=== PATIENT | male | born 1945 | race Caucasian/White ===

== ENCOUNTER 2017-09-21 00:02 | Inpatient (IN) | payer OTHER ==
[2017-09-21] MEDS ORDERED: Fentanyl 20 MCG/ML 250 ML ONE (00:27)
[2017-09-21 00:59] LABS: Oxyhemoglobin 95.5 % (94.0-97.0); Sodium 142 mmol/L (135-148)
[2017-09-21 01:01] LABS: Mechanical Tidal Volume 500 ml; Modified Allen's Test POSITIVE; Vent YES
[2017-09-21 01:02] LABS: Mode SIMV
[2017-09-21 01:16] LABS: Bilirubin Negative (Negative); Blood, Urine Small (Negative); Glucose, Urine (Dipstick) >=1000 mg/dL (Negative); Ketone, Urine Trace mg/dL (Negative); Nitrite Negative (Negative); Protein, Urine (Dipstick) 30 mg/dL (Neg-Trace); Urobilinogen 0.2 mg/dL (0.2-1.0)
[2017-09-21 01:19] LABS: Bacteria/HPF None Seen HPF (None Seen); Hyaline Casts/LPF 0-3 HYALINE CAST LPF (0-3 Hyaline); RBC/HPF 0-3 HPF (0-3); Squamous Epithelial 0-3 HPF (0-3); WBC/HPF 0-3 HPF (0-3)
[2017-09-21 01:48] LABS: Anion Gap 14 mmol/L (-14-95); Critical Call POC Critical Value; Lactate 7.68 mmol/L (0.50-2.20); POC Est. GFR-MDRD-African-Amer 36; POC Estimated GFR-MDRD 30; T. Carbon Dioxide 20.7 mmol/L (1.0-85.0); pH (Venous) 7.048 (7.35-7.45); vO2 Saturation-calc 48.3 % (0.0-100.0)
[2017-09-21] MEDS ORDERED: Norepinephrine 8 MG/0.9% NS 250 ML ONE (02:15)
[2017-09-21 02:18] LABS: Lactic Acid - Sepsis 8.6 mmol/L (0.5-2.2)
--- NOTE | 2017-09-21 02:20 | PDOC.EVN ---
Event Note - Event Note Event Note: [id number] 1. ACute respiratory failure 2. Hypovolemic shock 3. Acute blood loss anemia 4. DKA 5.
[2017-09-21 02:22] LABS: ALT (SGPT) 130 U/L (8-55); AST (SGOT) 190 U/L (5-34); Alkaline Phosphatase 186 U/L (40-150); Anion Gap 18 mmol/L (10-20); BUN (Urea Nitrogen) 74 mg/dL (8.4-25.7); Bilirubin, Total 0.4 mg/dL (0.2-1.2); CK (CPK) 1046 U/L (30-200); Calc. Creatinine Clearance 0 mL/min (70-130); Calcium 7.7 mg/dL (7.8-10.44); Carbon Dioxide 17 mmol/L (23-31); Chloride 112 mmol/L (98-107); Estimated GFR-MDRD 32; Globulin 2.3 g/dL (2.4-3.5); Magnesium 2.5 mg/dL (1.6-2.6); Protein, Total 4.8 g/dL (5.8-8.1)
[2017-09-21 02:27] LABS: Troponin I 5.873 ng/mL (< 0.028)
[2017-09-21 02:30] LABS: PTT 57.3 SEC (22.9-36.1); Prothrombin Time 30.6 SEC (12.0-14.7)
[2017-09-21 02:36] LABS: Hematocrit 21.6 % (42.0-52.0); Mean Platelet Volume 8.6 fL (7.4-10.4); Red Blood Cell (RBC) Count 2.39 mill/uL (4.70-6.10)
[2017-09-21] MEDS ORDERED: Ondansetron HCl/PF 4 MG/2 ML Vial IVP PRN (02:48)
[2017-09-21] MEDS ORDERED: D5 1/2 NS w/20 mEq KCL 1,000 ML IV PRN (02:51)
[2017-09-21] MEDS ORDERED: CCU Electrolyte Replacement 1 EACH IVPB SCH (02:51)
[2017-09-21] MEDS ORDERED: NS 0.9% w/ 20 MEQ KCL 1,000 ML IV PRN ×2 (02:51)
[2017-09-21] MEDS ORDERED: Dextrose 5 %-0.45 % NaCl 1,000 ML IV PRN (02:51)
[2017-09-21] MEDS ORDERED: Sodium Chloride 0.9% 1,000 ML IV PRN ×4 (02:51)
[2017-09-21] MEDS ORDERED: TAZOBACTAM IVPB SCH (03:00)
[2017-09-21] MEDS ORDERED: PIPERACILLIN IVPB SCH (03:00)
[2017-09-21] MEDS ORDERED: SODIUM CHLORIDE 0.9% IVPB SCH (03:00)
[2017-09-21] MEDS ORDERED: Fentanyl 20 MCG/ML 250 ML IVPB SCH ×2 (03:16→04:27)
[2017-09-21 03:20] LABS: Band 18 % (5-11); Myelocyte 6 % (0-0); Neutrophil 47 % (42-75); Nucleated RBC 40 % (0)
[2017-09-21] MEDS ORDERED: Potassium Chloride 40 MEQ in Premix Bag 1 BAG IVPB PRN (03:22)
[2017-09-21] MEDS ORDERED: Potassium Phosphate 12 MMOL in Sodium Chloride 0.9% 250 ML 250 ML IV PRN (03:22)
[2017-09-21] MEDS ORDERED: Magnesium Oxide 400 MG TAB PO PRN ×2 (03:22)
[2017-09-21] MEDS ORDERED: CCU ELECTROLYTE REPLACEMENT PROTOCOL FS PRN (03:22)
[2017-09-21] MEDS ORDERED: Potassium Chloride 40 MEQ in Sodium Chloride 0.9% 250 ML 250 ML IVPB PRN (03:22)
[2017-09-21] MEDS ORDERED: Potassium Phosphate 9 MMOL in Sodium Chloride 0.9% 100 ML IVPB PRN (03:22)
[2017-09-21] MEDS ORDERED: Potassium Phosphate 15 MMOL in Sodium Chloride 0.9% 250 ML 250 ML IV PRN (03:22)
[2017-09-21] MEDS ORDERED: Potassium Chloride 20 MEQ TAB PO PRN (03:22)
[2017-09-21] MEDS ORDERED: Magnesium 2 GM/NS 0.9% 100 ML 2 GM in Premix Bag 1 BAG IVPB PRN (03:22)
[2017-09-21] MEDS ORDERED: Vancomycin HCl 1 GM in Premix Bag 1 BAG IVPB SCH (03:30)
[2017-09-21] MEDS ORDERED: Piperacillin/Tazobactam 3.375 GM in Sodium Chloride 0.9% 100 ML IVPB SCH (03:30)
[2017-09-21 03:50] LABS: Magnesium 2.4 mg/dL (1.6-2.6); Phosphorus 6.8 mg/dL (2.3-4.7)
[2017-09-21] MEDS: Pantoprazole 80 MG, Admixture Fee 1 EACH in Sodium Chloride 0.9% 100 ML IVP SCH ×2 (03:51→15:22)
[2017-09-21] MEDS ORDERED: Vancomycin HCl 1.5 GM in Sodium Chloride 0.9% 250 ML 300 ML IVPB SCH (04:00)
[2017-09-21] MEDS: Sodium Chloride 0.9% 1,000 ML IV SCH ×3 (04:00→16:46)
[2017-09-21] MEDS ORDERED: ZOSYN IVPB PRN (04:11)
[2017-09-21] MEDS ORDERED: Propofol 1,000 MG/100 ML VIAL IV ONE (04:19)
[2017-09-21] MEDS ORDERED: DISCONTINUE PREVIOUS NARCOTIC PAIN MEDICATIONS AND BENZODIAZEPINES FS SCH (04:27)
[2017-09-21] MEDS ORDERED: Lorazepam 2 MG/ML VIAL SLOW IVP PRN (04:27)
[2017-09-21] MEDS ORDERED: Morphine 4 MG/ML VIAL SLOW IVP PRN (04:28)
[2017-09-21 06:24] LABS: Anion Gap 12 mmol/L (10-20); BUN (Urea Nitrogen) 76 mg/dL (8.4-25.7); Calc. Creatinine Clearance 33 mL/min (70-130); Calcium 7.2 mg/dL (7.8-10.44); Carbon Dioxide 17 mmol/L (23-31); Chloride 117 mmol/L (98-107); Estimated GFR-MDRD 34
--- NOTE | 2017-09-21 07:14 | HP ---
DATE OF ADMISSION: 09/21/2017 CHIEF COMPLAINT: Coughing up blood. HISTORY OF PRESENT ILLNESS: The patient is a 72-year-old male with past medical history of diabetes mellitus type 2, hypertension, hyperlipidemia, coronary artery disease, hypothyroidism, now came to the ER because of respiratory failure. Patient lives in the retirement and the patient was found to be having coughing up blood and vomiting coffee-ground emesis, so patient was taken to the outside ER. In the outside ER, the patient was found to be in respiratory distress, so the patient was intubated. After the intubation, the patient was found to have coffee-ground emesis and then following that patient was found to have pH of 6.77, pCO2 of 61, so patient was transferred here on the vent support. The patient also found to have severe metabolic acidosis and DKA and hyperkalemia also. The patient did receive 2 units of blood transfusion in the outside ER and is in an amp of bicarbonate push. The patient received total of 4 liters of fluid bolus also in the past. The patient is currently still hypotensive and on the vent support, so we are not able to get much history. PAST MEDICAL HISTORY: As per HPI. PAST SURGICAL HISTORY: Unavailable. SOCIAL HISTORY: Currently living in retirement. Other social history unavailable. FAMILY HISTORY: Unavailable as the patient is currently on the vent support. REVIEW OF SYSTEMS: Unavailable from the patient as the patient is currently on the vent support. PHYSICAL EXAMINATION: CONSTITUTIONAL/VITAL SIGNS: At the time of H&P performed, blood pressure is 80/ 43, afebrile, respiration rate 18. GENERAL: The patient appears tired. HEENT: Anterior nares patent. Oral cavity positive for ET tube. Tongue appears dry. NECK: Supple, no JVD. CARDIOVASCULAR: S1, S2 present. Regular rate and rhythm, no murmurs, no rubs, no gallops. RESPIRATORY SYSTEM: Diminished breath sounds present. Positive for rhonchi, no wheezing, no accessory muscles seen. Positive for vent support. GASTROINTESTINAL: Abdomen is soft, distended, no guarding, no organomegaly, no masses felt. MUSCULOSKELETAL: No edema. CRANIAL NERVE SYSTEM: Intubated on vent support, not following commands. PSYCHIATRIC: Mood calm. LABORATORY DATA: At the time of H&P performed showed CBC is pending. Blood gas showed pH 7.13, pCO2 of 48, pO2 97. BMP showed sodium 147, potassium 4.6, chloride 114, creatinine 2.17. Lactate 7.68. ASSESSMENT AND PLAN: The patient is a 72-year-old male. 1. Acute respiratory failure, possible aspiration and respiratory acidosis. Plan to consult Pulmonary to evaluate the patient. Plan to continue on vent support. Plan to monitor the patient closely. 2. Diabetic ketoacidosis. Continue insulin drip per protocol. Plan to check BMP now. 3. Acute blood loss anemia. Patient did receive 2 units of packed RBCs. We will go ahead and order the 2 units of RBCs. Patient does have some blast cells and has elevated white count. ED physician did notify the oncologist who recommended to admit the patient here, so we will go ahead and admit the patient and we will monitor white count closely and hemoglobin. 4. Hyperkalemia, diabetic ketoacidosis and acute kidney injury. Consult livestock buyer to the patient. Continue IV fluids and monitor potassium level closely, improving. 5. Hypotension, sepsis. Plan to start the patient on broad spectrum antibiotics and also on vasopressors. We will monitor blood pressure closely. The case was discussed in detail with the patient. RAMIRO
[2017-09-21] MEDS ORDERED: Albumin 25% 25 GM/100 ML BOT IVPB SCH (07:44)
[2017-09-21] MEDS ORDERED: FLU VACC TS2017-18 (>65YR) 0.5 ML SYRINGE IM ONE (07:45)
[2017-09-21 07:51] LABS: Anion Gap 15 mmol/L (10-20); BUN (Urea Nitrogen) 78 mg/dL (8.4-25.7); Calc. Creatinine Clearance 32 mL/min (70-130); Calcium 7.3 mg/dL (7.8-10.44); Carbon Dioxide 13 mmol/L (23-31); Chloride 118 mmol/L (98-107); Estimated GFR-MDRD 32
--- NOTE | 2017-09-21 08:05 | RAD ---
PORTABLE CHEST: HISTORY: Shortness of breath. COMPARISON: No comparison. FINDINGS: There is abnormal opacification in the left lung base obscuring the left hemidiaphragm consistent wit h dense left lower lobe consolidation and/or atelectasis. Probable associated left effusion. Mild vascular congestion. Heart size within normal range. Mild aortic calcification. Bilateral api britt pleural thickening. IMPRESSION: Abnormal opacification of the left lung base. Mild vascular congestion. POS: [facility]
--- NOTE | 2017-09-21 08:12 | RAD ---
PORTABLE CHEST: HISTORY: Shortness of breath. COMPARISON: Comparison is made to exam earlier at 12:45 a.m. FINDINGS: The ET tube is in place with tip at vinita. NG tube is in place. Central line is in place via the r ight jugular and the tip overlies the SVC. There continues to be opacification of the left lung base obscuring the left hemidiaphragm consistent with left basilar atelectasis and/or consolidation. There may be associated left effusion. IMPRESSION: No significant interval change in the lung holland. POS: EDWARDO
[2017-09-21 08:32] LABS: Troponin I 10.628 ng/mL (< 0.028)
[2017-09-21] MEDS: Piperacillin/Tazobactam 2.25 GM in Sodium Chloride 0.9% 100 ML IVPB SCH ×3 (09:14→23:20)
[2017-09-21] MEDS ORDERED: Phytonadione 10 MG in Sodium Chloride 0.9% 50 ML IVPB SCH (09:30)
[2017-09-21] MEDS: Vasopressin 40 UNIT, Admixture Fee 1 EACH in Sodium Chloride 0.9% 100 ML IV SCH (10:02)
[2017-09-21 10:17] LABS: Sodium 142 mmol/L (135-148)
[2017-09-21 10:18] LABS: Mechanical Tidal Volume 500 ml; Mode SIMV; Modified Allen's Test POSITIVE; Pressure Support 10 cmH2O; Vent YES
[2017-09-21] MEDS ORDERED: DC Electrolyte Protocol FS ONE (10:35)
--- NOTE | 2017-09-21 10:38 | CON ---
DATE OF CONSULTATION: 09/21/2017 The patient is a 72-year-old gentleman with a complicated medical history. He was transferred from [facility] with multiple medical problems. ER physician at 2 o'clock in the morning notified me about his admission. Admission diagnosis was severe anemia and diabetic ketoacidosis, respiratory failure, GI bleed and an abnormal CBC. Apparently he was transfused 2 units of blood, he started on Levophed. He was given bicarbonate, ins ulin, fentanyl, Protonix. Multiple doctors are being consulted. At this stage, there are 2 officers from [place], I told th em to notify the warden, that the patient was gravely ill, may need to contact family members. History from the [facility] system includes the patient apparently was unresponsive with GI bleeding and apparently proceeded to have a respiratory arrest. His CT of the head was negative. CT of the abdom en shows splenomegaly with no obvious ascites. This was all done at [place]. His chest x-ray shows bilateral pulmonary infiltrates, left greater than right. MEDICATIONS: His list of medicine from [place] includes insulin 30 units, aspirin, levothyroxine 0.1, loratadine, metformin 1000 twice a day, Nitrostat, Pravastatin 20, verapamil 240. His [place] diagnosis states that he has hypertension, hyperlipidemia, hypothyroidism, diabetes, a nemia, unknown mental status. As noted, he had received 2 units of blood in [place] before being transferred here. Upon arrival to the ER as per the ER note locally he was unresponsive. He was apparently shackled. He has a central line placed in. Unclear about any additional information at this stage. He is presently on Levophed at 20 mcg, insulin 6 units IV fluids 150. PHYSICAL EXAMINATION: VITAL SIGNS: Pulse 100, blood pressure 120/80, sats are 97%, respiration 20. His I's and O's the la st 24 hours are 1079 in, 40 out. CHEST: Chest revealed bilateral rhonchi and crackles. CARDIAC: Sinus tachycardia. ABDOMEN: Soft. LABORATORY: His creatinine is 1.94, BUN is 76. Electrolytes are normal. His blood sugar is 262, la ctate is 5.6. His white count is 14,000, H&H is 6 and 21, platelet count was 200, 18 bands, 47 segs, 14 nucleated cells, 6 myelocytes. INR 2.8, PO2 119, pCO2 40% on 1.3, 100% FiO2 and 5 of PEEP in the ER. Troponin was 5.8. BNP is 5.9. IMPRESSION: 1. Multiorgan failure. 2. Hypotension. 3. Shock. 4. Sepsis. 5. Pneumonia. 6. Gastrointestinal bleed. 7. Abnormal CBC suggestive of possibly leukemia. 8. Renal failure. 9. Diabetes. 10. Metabolic acidosis. 11. Possible anoxic injury. PLAN: At this stage, continue insulin and broad-spectrum antibiotics adjusted for renal failure. IV fluids. is being ordered. Continue pressors. I will follow. Forty-five minutes critical care time.
--- NOTE | 2017-09-21 11:03 | CON ---
DATE OF CONSULTATION: 09/21/2017 HISTORY OF PRESENT ILLNESS: Mr. Salas is a 72-year-old inmate who was admitted for acute respiratory failure. He initially was complaining of hemoptysis at the [facility]. He was brought to [facility] ER. He was found to be in acute respiratory failure and for that reason was transferred to [facility]. We are now being consulted for his acute kidney injury. Please note, during the i nitial evaluation in the [place] ER he was given about 2 liters of fluid due to his hypotension an d acute kidney injury. REVIEW OF SYSTEMS: Not obtainable since the patient is intubated. PAST MEDICAL HISTORY: Type 2 diabetes mellitus. Status post hypotension. PAST SURGICAL HISTORY: Unavailable - recently status post intubation. SOCIAL HISTORY: The patient is currently an inmate at the [facility]. Currently no hi story of smoking. No alcohol intake. FAMILY HISTORY: Unavailable. PHYSICAL EXAMINATION: VITAL SIGNS: Blood pressure is currently at 120/70 on pressor support. Heart rate is 96, O2 sat 93% . GENERAL: Sedated and intubated on ventilator support. SKIN: Adequate turgor. HEENT: Pale conjunctivae, anicteric sclerae. NECK: No neck mass, no JVD. CHEST: No deformities. LUNGS: Decreased breath sounds. HEART: Normal sinus rhythm. No murmur, no gallops or rubs. ABDOMEN: Globular, soft, nontender, no masses. EXTREMITIES: No edema, no deformities. NEUROLOGIC: Sedated and intubated. MEDICATIONS: The patient is on insulin drip, Levaquin 250 mg IV q.24h., Ativan p.r.n., fentanyl drip , DuoNeb q.4h., currently on Levophed, Zosyn 2.25 grams IV q.6h., normal saline 100 mL per hour, salt poor albumin 25 grams IV q.6h. LABORATORY: 09/21/2017. White count 40, hemoglobin 6.6, sodium 142, potassium 4.3, chloride 118, ca rbon dioxide 13, BUN 78, creatinine 2.04, glucose 229, calcium 7.3, troponin I is 10.6. Cortisol lev el 22.6. ASSESSMENT AND PLAN: 1. Elevated white count - as per history this patient has a recent diagnosis of leukemia ?. Support jean-claude care. 2. Acute kidney injury. I did review the urinalysis. There is no evidence of any pigmented granula r cast. He most likely has a hemodynamically mediated renal dysfunction as suggested by a very amna ntrated urine as well as suggested by the events of his clinical history. Continue to optimize hemod ynamics. I agree with pressor support to raise blood pressure systolic. At the present time, there is no acute indication for any dialytic intervention. 3. Anemia - p.r.n. blood transfusion. Question of gastrointestinal bleed remains with this patient. It is unclear if he was complaining of hemoptysis or hematemesis. 4. Septic syndrome ? - on empiric IV antibiotics. The patient was ruled out for adrenal insufficien cy based on normal cortisol level. Overall, prognosis remains guarded. Continue supportive care.
--- NOTE | 2017-09-21 13:53 | CON ---
DATE OF CONSULTATION: 09/21/2017 CRITICAL CARE NOTE TIME: 30 minutes. HISTORY OF PRESENT ILLNESS: Patient is a 72-year-old gentleman who suffered a respiratory arrest and was emergently intubated. The patient is unable to give a coherent history. From the records, he apparently has a history of coronary artery disease. Patient was brought from the [facility] in [place] when he apparently collapsed. The patient was transferred to [place] for further evaluation. The patient at this time is intubated on pressors and on pressor support. PAST MEDICAL HISTORY: Hypertension, CAD, diabetes mellitus, dyslipidemia and CML. PAST SURGICAL HISTORY: SOCIAL HISTORY: The patient is incarcerated. MEDICATIONS: Aspirin 81 daily, pravastatin 20 at bedtime, verapamil 240 daily, metformin 500 b.i.d.,and Synthroid 100 mcg daily. ALLERGIES: No known drug allergies. PHYSICAL EXAMINATION: GENERAL: Intubated gentleman who was sedated with a blood pressure of 137/52 on Levophed. NECK: Full. LUNGS: Coarse breath sounds bilateral. HEART: Regular rate and rhythm, normal S1, S2 with a 1/6 systolic murmur. ABDOMEN: Nondistended. EXTREMITIES: No edema. LABORATORY DATA: Sodium 142, potassium 4.3, chloride 118, bicarbonate 13, BUN 78, creatinine 2.0, glucose is 204, troponin was 10.6. His white blood cell count is 40, hemoglobin 6.6, hematocrit 21.6 and platelets were 200. INR is 2.8. His EKG revealed sinus tachycardia, otherwise unremarkable. IMPRESSION: 1. Respiratory arrest. 2. Gastrointestinal bleed. 3. Probable sepsis. 4. Chronic myelogenous leukemia. 5. Renal insufficiency. 6. Diabetes mellitus. This unfortunate gentleman with CML who developed respiratory failure secondary to gastrointestinal bleed and sepsis. Patient has suffered a non-Q-wave myocardial infarction. His EKG is unremarkable. We will check the patient's echocardiogram. The patient cannot be anticoagulated as he is at this time on pressure support. His prognosis is poor. We will check the patient's echocardiogram and will follow this patient with you through his hospitalization. RAMIRO
--- NOTE | 2017-09-21 14:38 | ULT ---
RENAL ULTRASOUND: INDICATION: Acute renal failure. FINDINGS: The right kidney measures 11.4 x 5.2 x 5.4 cm. The left kidney measures 10.5 x 5.3 x 6.2 cm. No hyd ronephrosis is grossly evident. There is a small nonshadowing echogenic focus seen within the right renal pelvis which may reflect a prominent column of Godfrey. This measures up to 1.9 cm in size. A solid renal lesion within this lo cation cannot be entirely excluded. A noncontrast MRI of the abdomen may be helpful to evaluate for possible peripelvic soft tissue mass. IMPRESSION: Peripelvic soft tissue density seen within the mid to superior pole of the right kidney measuring up to 1.9 cm may reflect a column of Godfrey. Further evaluation with MRI of the abdomen without contras t may be helpful for improved characterization. POS: EDWARDO
[2017-09-21 14:52] LABS: Troponin I 24.738 ng/mL (< 0.028)
[2017-09-21] MEDS: Norepinephrine 8 MG/0.9% NS 250 ML IVPB SCH (15:22)
--- NOTE | 2017-09-21 16:03 | CON ---
DATE OF CONSULTATION: 09/21/2017 REASON FOR CONSULTATION: Leukocytosis. HISTORY OF PRESENT ILLNESS: Mr. Salas is a 72-year-old gentleman who is incarcerated at [facility]. He had an episode of hemoptysis at the [facility] and was transferred to [facility] in [place]. Apparently, he had respiratory arrest and underwent CPR and intubation. He de souza rvived and was eventually transferred to this facility with a diagnosis of severe anemia, diabetic ke toacidosis, respiratory failure, GI bleed, and abnormal CBC. Critical Care Medicine has seen the patient as has Nephrology. The patient is intubated and remains unresponsive. History was obtained from review of medical record. The patient's medical history inc ludes hypertension, diabetes, hypothyroidism, hypertension, and anemia. There is no lab provided fro the penitentiary system. No history of myeloproliferative or leukemia. In the [place] [facility] , CBC showed a WBC count of 134.7, hemoglobin of 4.6, platelet count of 523,000. He had 46% neutroph ils, 3% bands, 22% lymphs, 11% monocytes. He had 15 nucleated RBCs. He had a negative brain CT. He had an abdominal pelvis CT, which showed splenomegaly with the spleen measuring 15.9 cm. The patien t did receive 2 units of packed RBCs. He remains in the ICU on the ventilator on vasopressor support . CBC at our facility performed this morning at 0146 shows WBC count of 40, hemoglobin 6.6, hematocr it 21.6, platelet count of 200,000, 47% neutrophils, 18% bands, 4% lymphocytes, 6% myelocytes, 40% nu cleated RBCs. Peripheral smear shows a neutrophilic leukocytosis with a left shift, including 5% evin sts. PAST MEDICAL HISTORY: As noted in HPI. PAST SURGICAL HISTORY: Unknown. ALLERGIES: IGNACIO INHIBITORS and DEMEROL. HOME MEDICATIONS: 1. Aspirin 81 mg daily. 2. Insulin daily. 3. Levothyroxine 100 mcg daily. 4. Metformin 500 mg b.i.d. 5. Pravastatin 20 mg daily. 6. Verapamil 240 mg daily. FAMILY HISTORY: Unknown. SOCIAL HISTORY: He is incarcerated in [facility]. REVIEW OF SYSTEMS: Unable to obtain due to unresponsiveness. PHYSICAL EXAMINATION: VITAL SIGNS: Temperature is 99.2, pulse is 100, respiratory rate 27, blood pressure is 135/43. He i s 90% O2 sat on 100% O2. GENERAL: Unresponsive male, in no acute distress. HEENT: Normocephalic, atraumatic. He has an ET tube in place. CARDIOVASCULAR: Regular rate and rhythm. He is tachycardic. LUNGS: He has diminished with rhonchi throughout. ABDOMEN: Soft. Bowel sounds are positive. EXTREMITIES: No clubbing, cyanosis, or edema. SKIN: No rash. HEMATOLOGIC: There is an NG tube with coffee ground output. NEUROLOGIC: The patient is unresponsive, but does move all extremities spontaneously. PERTINENT LABORATORY AND X-RAYS: Current WBCs are 40,000, hemoglobin 6.6, hematocrit 21.6, platelet count is 200,000. Blood gas shows a pH of 7.2, pO2 of 59.1, hemoglobin is 9.3, PT is 30.6, INR is 2. 8, PTT is 57.3. Sodium is 142, potassium 4.3, chloride 118, CO2 is 23, BUN is 78, creatinine 2.04. Lactic acid is 5.2, calcium 5.3, troponin is 10.628. Urine is positive for ketones. Chest x-ray beto ws bilateral pulmonary infiltrates. IMPRESSION: 1. Multiorgan failure. 2. Hypertension. 3. Leukocytosis. 4. Respiratory failure. 5. Gastrointestinal bleed. 6. Pneumonia. 7. Questionable anoxic injury. DISCUSSION: The patient's respiratory status is managed by critical medicine. His hemoglobin has im proved with blood transfusion. His WBC combined with his splenomegaly points to myeloproliferative d isorder. We will run a flow cytometry on peripheral blood. The patient's status is quite guarded. We will be conservative in our approach at this time until he recovers from his current illness. Thank you for the consult. We will follow him remotely.
[2017-09-21 17:46] LABS: Oxyhemoglobin 85.5 % (94.0-97.0); Sodium 141 mmol/L (135-148)
[2017-09-21] MEDS ORDERED: Albumin 25% 25 GM/100 ML BOT IVPB ONE (17:50)
[2017-09-21 17:57] LABS: Modified Allen's Test POSITIVE; Vent YES
[2017-09-21 17:58] LABS: Mechanical Tidal Volume 500 ml
[2017-09-21 18:00] LABS: Mode SIMV.PSV; Pressure Support 10 cmH2O
[2017-09-21] MEDS ORDERED: Sodium Bicarb 50 MEQ/50 ML Abboject 8.4% SYRINGE IVP SCH (18:00)
[2017-09-21] MEDS ORDERED: Dextrose 5% in Water 1,000 ML IV SCH (18:00)
[2017-09-21] MEDS: Albumin 25% 25 GM/100 ML BOT IVPB SCH ×2 (18:09→23:22)
[2017-09-22] MEDS: Acetaminophen 650 MG Suppository PR PRN (00:07)
[2017-09-22] MEDS: Vasopressin 40 UNIT, Admixture Fee 1 EACH in Sodium Chloride 0.9% 100 ML IV SCH ×2 (00:30→14:32)
[2017-09-22] MEDS: Pantoprazole 80 MG, Admixture Fee 1 EACH in Sodium Chloride 0.9% 100 ML IVP SCH ×3 (00:30→21:09)
[2017-09-22] MEDS: Propofol 1,000 MG/100 ML VIAL IV PRN ×2 (00:33→21:47)
[2017-09-22] MEDS: Sodium Chloride 0.9% 1,000 ML IV SCH (01:18)
[2017-09-22] MEDS: Sodium Bicarbonate 75 MEQ in Dextrose 5% in Water 500 ML IV SCH ×8 (01:18→21:08)
[2017-09-22] MEDS: Piperacillin/Tazobactam 2.25 GM in Sodium Chloride 0.9% 100 ML IVPB SCH ×5 (04:17→21:09)
[2017-09-22 04:50] LABS: Anion Gap 15 mmol/L (10-20); BUN (Urea Nitrogen) 105 mg/dL (8.4-25.7); Calc. Creatinine Clearance 17 mL/min (70-130); Calcium 7.5 mg/dL (7.8-10.44); Carbon Dioxide 20 mmol/L (23-31); Chloride 114 mmol/L (98-107); Estimated GFR-MDRD 16
[2017-09-22] MEDS: Vancomycin HCl 500 MG in Sodium Chloride 0.9% 100 ML IVPB SCH (05:20)
[2017-09-22 05:35] LABS: Band 25 % (5-11); Hematocrit 28.1 % (42.0-52.0); Mean Platelet Volume 10.2 fL (7.4-10.4); Metamyelocyte 4 % (0-0); Myelocyte 1 % (0-0); Neutrophil 46 % (42-75); Nucleated RBC 3 % (0); Red Blood Cell (RBC) Count 3.13 mill/uL (4.70-6.10); Tear Drops SLIGHT = 2-5 cells (100X) (0-1/hpf); White Blood Cell (WBC) Count 12.2 thou/uL (4.8-10.8)
--- NOTE | 2017-09-22 05:41 | CON ---
DATE OF CONSULTATION: 09/21/2017 REASON FOR CONSULTATION: Hematemesis. CONSULTING PHYSICIAN: Jaun Pryor MD HISTORY OF PRESENT ILLNESS: The patient is a 72-year-old gentleman with past medical history of diabetes, hypertension, hyperlipidemia, coronary artery disease, CML(?), and hypothyroidism presenting with respiratory distress/ failure as well as coffee ground emesis. The patient is currently residing in [facility] where he began to have difficulty breathing and was taken to an outside ER. At that point, he was noted to be in respiratory distress in addition to having hematemesis characterized by coffee ground emesis and was subsequently intubated and sedated, OG tube aspirate after being placed on ventilatory support yielded coffee ground material at which point he was transferred to [facility] for further evaluation and treatment. On admission, he was found to have severe metabolic acidosis, diabetic ketoacidosis and hyperkalemia requiring placement in ICU care. Of note, while in the outside ER, he received approximately 2 units of blood, an amp of bicarbonate, and a total of approximately 4 liters of fluid. Currently, the patient is intubated and sedated with any additional past medical or surgical history unable to be obtained. PAST MEDICAL HISTORY: As per HPI. PAST SURGICAL HISTORY: Unavailable. SOCIAL HISTORY: Currently incarcerated in [place] half[place]way. No stated tobacco , alcohol, or drug use, although the patient is unable to contribute to current history. FAMILY HISTORY: Unavailable. REVIEW OF SYSTEMS: Patient is unable to contribute any review of systems due to being intubated and sedated. PHYSICAL EXAMINATION: VITAL SIGNS: Pulse 108, blood pressure 136/40, respiratory rate 26, satting 94 % on ventilatory support. GENERAL: Patient is intubated and sedated with no observed distress. CARDIOVASCULAR: Regular rate and rhythm with no discernible murmurs, gallops or rubs. RESPIRATORY: Coarse breath sounds were heard in all lung holland consistent with ventilatory support. ABDOMEN: Normoactive bowel sounds, soft. No grimacing or change in visage upon light and deep palpation of the abdomen. EXTREMITIES: No cyanosis, clubbing or edema. LABORATORY DATA: CBC with white blood cell count of 40, hemoglobin 6.6, hematocrit 21.6, platelet count 200. Chemistry: Sodium 142, potassium 4.3, chloride 118, carbon dioxide 13, anion gap 15, BUN 78, creatinine 2.04, glucose 229, calcium 7.3, troponin 24.7, INR 2.8. IMAGING: Chest x-ray obtained on 09/21/2017 showing endotracheal tube is in place with the tip of the vinita. NG tube is in place as well with proper positioning. Central line is in place via the right jugular and the tip overlies the SVC. There continues to be opacification of the left lung base obscuring the left hemidiaphragm concerning for atelectasis and/or consolidation. Renal ultrasound obtained on 09/21/2017 showing peripelvic soft tissue density seen within the mid to superior pole of the right kidney measuring up to 1.9 cm, which may reflect a column of Godfrey although a solid renal lesion cannot be entirely excluded. ASSESSMENT AND PLAN: The patient is a 72-year-old gentleman with past medical history of diabetes, hypertension, hyperlipidemia, coronary artery disease, hypothyroidism presenting with diabetic ketoacidosis, probable sepsis, hematemesis and renal insufficiency. Hematemesis Patient is presenting with a very complicated medical picture at this time as noted by probable sepsis, elevated troponins indicative of cardiac stress and/ or myocardial infarction, end-organ dysfunction, and diabetic ketoacidosis with severe acidosis noted on admission. He was also noted to have significant hematemesis, both before and after intubation, with coffee ground or dark colored emesis noted in the NG tube aspirate at bedside. Currently with decreased H&H concerning for active gastrointestinal bleeding, although with the coloration of the current NG tube aspirate, it is less likely at this time. He is currently facing bigger issues including hypotenison and possible myocardial infarction making endoscopic evaluation more complicated and with increased complications. There is also some question that he may have a diagnosis of chronic myelocytic leukemia as well which may be contributing to the current clinical picture. His clinical picture will need to be more stable prior to endoscopic intervention. PLAN: 1. Primary team in the CCU to stabilize the patient with goal of more normotensive pressures. Appreciate assistance. 2. Continue to trend H&H and transfuse if necessary to maintain an H&H greater than 7/21. 3. Continue proton-pump inhibitor drip for upper GI bleed. 4. We will hold on EGD for now until stabilization of the patient is achieved. If stabilization of the patient and decrease in his INR can be achieved, then we will proceed with endoscopic evaluation with EGD. [facility]
[2017-09-22] MEDS: Albumin 25% 25 GM/100 ML BOT IVPB SCH (06:17)
[2017-09-22] MEDS: Norepinephrine 8 MG/0.9% NS 250 ML IVPB SCH (06:50)
[2017-09-22 08:09] LABS: Oxyhemoglobin 95.6 % (94.0-97.0); Sodium 142 mmol/L (135-148)
[2017-09-22 08:11] LABS: Mode BILEVEL; Modified Allen's Test POSITIVE; PIP 24 cmH2O; Pressure Support 10 cmH2O; Vent YES
--- NOTE | 2017-09-22 08:11 | PDOC.PN ---
- Subjective Encounter Start Date: 09/22/17 Encounter Start Time: 08:10 -: non-verbal Subjective: INTUBATED - Objective MAR Reviewed: Yes Vital Signs & Weight: Vital Signs (12 hours) Temp Pulse Resp BP Pulse Ox 09/22/17 07:44 83 91/51 L 09/22/17 07:37 83 26 H 99 09/22/17 06:00 26 H 09/22/17 04:00 99.9 F H 26 H 09/22/17 02:00 99.9 F H 26 H 09/22/17 01:00 99.7 F H 09/22/17 00:19 102 H 26 H 09/22/17 00:00 101.6 F H 26 H 09/21/17 22:00 26 H Weight Admit Weight 154 lb Weight 154 lb 15.759 oz Most Recent Monitor Data Heart Rate from ECG 84 NIBP 98/52 NIBP BP-Mean 71 Respiration from ECG 26 SpO2 100 I&O: 09/21/17 09/22/17 09/23/17 06:59 06:59 06:59 Intake Total 1079.9 5538.7 Output Total 40 60 Balance 1039.9 5478.7 Result Diagrams: 09/22/17 03:45 09/22/17 03:45 Additional Labs: Accuchecks 09/22/17 09/22/17 09/22/17 07:31 06:20 05:16 POC Glucose 98 105 130 H 09/22/17 09/22/17 09/22/17 02:42 01:32 00:53 POC Glucose 129 H 115 H 108 09/21/17 09/21/17 09/21/17 23:28 22:39 21:47 POC Glucose 125 H 139 H 127 H 09/21/17 09/21/17 09/21/17 20:43 19:25 16:50 POC Glucose 138 H 150 H 136 H 09/21/17 09/21/17 09/21/17 12:44 11:36 10:45 POC Glucose 114 H 96 91 09/21/17 09:10 POC Glucose 133 H Radiology Reviewed by me: Yes Phys Exam - Physical Examination INTUBATED AND SEDATED ETT IN PLACE Respiratory: no wheezing, clear to auscultation bilateral Cardiovascular: RRR Gastrointestinal: positive bowel sounds Musculoskeletal: edema present SEDATED Deviation from normal: ECCHYMOSIS Dx/Plan (1) Acute blood loss anemia Code(s): D62 - ACUTE POSTHEMORRHAGIC ANEMIA Status: Acute (2) Hematemesis Code(s): K92.0 - HEMATEMESIS Status: Acute (3) DKA (diabetic ketoacidosis) Code(s): E13.10 - OTH DIABETES MELLITUS WITH KETOACIDOSIS WITHOUT COMA Status : Acute (4) Respiratory failure Code(s): J96.90 - RESPIRATORY FAILURE, UNSP, UNSP W HYPOXIA OR HYPERCAPNIA Status: Acute (5) Leukocytosis Code(s): D72.829 - ELEVATED WHITE BLOOD CELL COUNT, UNSPECIFIED Status: Acute (6) Sepsis associated hypotension Code(s): A41.9 - SEPSIS, UNSPECIFIED ORGANISM Status: Acute - Plan cont current plan of care, valdovinos catheter, continue antibiotics, respiratory therapy APPRECIATE INPUT FROM CCM, HEME,CONTINUE CURRENT REGIMEN. PATIENT IMPROVED -: BUT IN GUARDED CONDITION. * .
--- NOTE | 2017-09-22 08:32 | RAD ---
PORTABLE AP CHEST: Date: 09-22-17 History: Fever. Comparison: 09-21-17 History: On ventilator. Follow up evaluation. FINDINGS: Endotracheal tube, nasogastric tube, and right internal jugular vein central venous catheter remain i n place and unchanged in position. There is increased interstitial opacities throughout the lungs percy aterally which have increased when compared to the prior exam with greater patchy parenchymal opaciti es at each lung base. Findings may be related to either worsening asymmetric pulmonary edema or infec tious process. Cardiac silhouette is within normal limits. Vascular calcifications seen in the thorac ic aorta. No other interval change. IMPRESSION: Increase in bilateral interstitial opacities with increase in parenchymal opacities and opacity at th e right lung base. Findings may be related to either worsening asymmetric pulmonary edema or infectio us process. POS: EDWARDO
--- NOTE | 2017-09-22 08:39 | RAD ---
AP CHEST: Indication: Daily CCU examination on ventilation. Comparison: 09-22-17 FINDINGS: The patient remains intubated with an ET tube projecting just beyond the thoracic inlet. Gastric cath eter tip projects below the left hemidiaphragm and beyond the field of view. Right subclavian central venous catheter is stable. The patchy airspace disease involving both lungs is stable, suspicious fo r persistent pneumonia. No robyn pleural effusion or pneumothorax is evident. Osseous structures are unchanged. IMPRESSION: Stable pneumonia. POS: ZULEYKA
--- NOTE | 2017-09-22 08:58 | PRG ---
DATE OF SERVICE: 09/22/2017 SERVICE: Renal Medicine. SUBJECTIVE: Mr. Salas is a 72-year-old white male who was initially seen by the renal service for his acute kidney injury. At that time, he felt that he might have a hemodynamically mediated renal dysfunction. He came in hypotensive. Empiric volume repletion has been given with him prior to his transfer here at [facility]. He is also receiving salt poor albumin and currently being maintained on pressor support due to the low blood pressure. His renal function this morning has seems to have worsened. He continues to be on the anuric side. Although, his urine sediment is suggestive of prerenal picture, his clinical course is suggesting that he may have a superimposed acute tubular necrosis. Currently, the patient remains unchanged in the last 12 hours. PHYSICAL EXAMINATION: VITAL SIGNS: Blood pressure is 97/52, heart rate 86, respiratory rate 26, pulse ox 100%. GENERAL: Sedated and intubated on ventilator support. SKIN: Adequate turgor. HEENT: Slightly pale conjunctivae, anicteric sclerae. NECK: No neck mass. No carotid bruits, no JVD. CHEST: No deformities. LUNGS: Clear breath sounds. HEART: Normal sinus rhythm. No murmur, no gallops, no rubs. ABDOMEN: Globular, soft, nontender, no masses. EXTREMITIES: No edema, no deformities. NEUROLOGIC: The patient is sedated and intubated. MEDICATIONS: Of 09/22/2017 was reviewed. LABORATORY DATA AND IMAGING: Of 09/22/2017, white count 12.2, hemoglobin 9.1, sodium 144, potassium 5.1, chloride 114, carbon dioxide 20, BUN 105, creatinine 3.83, glucose 129, calcium 7.5. Repeat urinalysis pending. Renal ultrasound of 09/21/2017 shows a peripelvic soft tissue density? may reflect column of Godfrey, no hydronephrosis. ASSESSMENT AND PLAN: Acute kidney injury - consider the possibility of a superimposed acute tubular necrosis. Renal function is not improving in spite of aggressive volume repletion - please note that in the last 24-48 hours, this patient received several liters of fluid. Currently, on salt poor albumin. He was also given blood transfusion due to his severe anemia. He remains anuric. My concern is that he may have developed a superimposed acute tubular necrosis. We will continue to monitor. There is no indication for emergent hemodialysis this morning. However, we will closely monitor the renal function and if needed, we can initiate dialysis with this patient. However, this decision will depend on his overall status. Please note, this patient may have developed an CA suggested by elevated troponin. In addition, he was diagnosed with DKA. The possibility of sepsis also remains with this patient. Overall prognosis remains guarded with this patient. Agree with current management. RAMIRO
--- NOTE | 2017-09-22 11:41 | PRG ---
DATE OF SERVICE: 09/22/2017 This morning he is intubated on the vent on vasopressin and Levophed. Pupils are 2 mm. We are trying to control his sedation. PHYSICAL EXAMINATION: VITAL SIGNS: Blood pressure is 90/80, respirations 26. I's & O's have been 5538 in, 60 out. CHEST: Chest revealed extensive rhonchi and crackles. CARDIAC: Sinus tachycardia. ABDOMEN: Soft, no masses. LABORATORY: White count 12,000, H&H 9 and 28, platelet count 78, 25 segs, 14 lymphocytes, metamyeloc ytes, monocytes. Blood gas; pO2 was 97, pCO2 41, pH 7.28 2.8, rate 26, 90%, PEEP of 10. BUN and cre atinine are 105 and 2.8. X-ray shows diffuse infiltrates. IMPRESSION: 1. Multiorgan failure. 2. Sepsis syndrome. 3. Respiratory failure. 4. Acute respiratory distress syndrome. 5. Gastrointestinal bleed. 6. Hepatitis C. 7. Abnormal peripheral smear 8. Renal failure. PLAN: He is on Levaquin, vancomycin and Zosyn. Vasopressor and Levophed, supportive care. His prognosis is grave. Continue present supportive care. Echo shows severely depressed ejection fr action. We will discuss with Nephrology whether he is a candidate for dialysis. The patient apparently has no family members to give any additional information. Continue supportive care. One-half hour critical care time.
[2017-09-22 13:42] LABS: Bilirubin Small (Negative); Blood, Urine Large (Negative); Glucose, Urine (Dipstick) 250 mg/dL (Negative); Ketone, Urine Negative (Negative); Nitrite Negative (Negative); Protein, Urine (Dipstick) 300 mg/dL (Neg-Trace); Urobilinogen 0.2 mg/dL (0.2-1.0)
[2017-09-22 13:44] LABS: Bacteria/HPF None Seen HPF (None Seen); Hyaline Casts/LPF 0-3 HYALINE CAST LPF (0-3 Hyaline); Squamous Epithelial None Seen HPF (0-3); WBC/HPF 0-3 HPF (0-3)
[2017-09-22 14:20] LABS: Yeast-All Forms None Seen HPF (None Seen)
--- NOTE | 2017-09-22 17:50 | PRG ---
DATE OF SERVICE: 09/22/2017 REASON FOR CONSULTATION: Hematemesis. SUBJECTIVE: Overnight, the patient received 2 units of PRBCs and responded appropriately to the infusion with increase in H&H and stabilization. He continues to be intubated and sedated, although sedation has been minimized today with sedation breaks given as well and increased responses from the patient, but he is not following simple commands. He continues to have coffee ground emesis coming from the OG tube, but when compared to yesterday, it is minimal at best. INPATIENT MEDICATIONS: Reviewed. PHYSICAL EXAMINATION: VITAL SIGNS: Temperature 100, pulse 86, blood pressure 115/67, respiratory rate 26, satting 92% on ventilatory support. GENERAL: The patient is in no acute distress, although cannot follow meaningful commands due to intubation and sedation. NECK: Supple. No JVD noted. CARDIOVASCULAR: Regular rate and rhythm with tachycardic rate. No discernible murmurs, gallops or rubs. RESPIRATORY: Coarse breath sounds were heard in all lung hol[place] consistent with ventilatory support. ABDOMEN: Normoactive bowel sounds, soft, nondistended. Mild grimacing noted when palpating the midepigastric region. EXTREMITIES: No cyanosis or clubbing. Mild to moderate edema noted in the left upper extremity as well as ecchymoses noted on the bilateral upper extremities. LABORATORY DATA: CBC with white blood cell count of 12.2, hemoglobin 9.1, hematocrit 28.1, platelets 78. Sodium 144, potassium 5.1, chloride 114, carbon dioxide 20, BUN 105, creatinine 3.83, glucose 129. IMAGING: Chest x-ray obtained on 09/22/2017, shows that the ET tube projects just beyond the thoracic inlet with a gastric catheter tip below the left hemidiaphragm and beyond the field of view. Right subclavian central venous catheter stable and patchy airspace disease involving both lungs are stable. 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 Hematemesis The patient presenting with a very complicated medical picture complicated by sepsis, elevated troponins indicative of cardiac stress/IL, end-organ dysfunction with significantly elevated BUN and creatinine, and diabetic ketoacidosis with severe acidosis noted on admission that is being corrected per most recent blood gas. He was noted to have significant hematemesis, both before and after intubation, but since he has been in the ICU, he has had minimal output within the last 12-18 hours from his OG tube. Currently, his H& H is stable when compared to previous along with the administration of 2 units of PRBCs last night to which he responded appropriately. He continues to be on pressor support, but this has also been weaned as well as sedation breaks now being given in response to his improvement in his clinical status. However, at this time, he may still need more stabilization of his clinical status prior to endoscopic evaluation especially since stabilization of his H&H and decreased coffee-ground emesis from OG tube output. PLAN: 1. Primary team to continue resuscitative measures with goal of more normotensive pressures. I appreciate the assistance of the ICU team. 2. Continue to trend H&H and transfuse as necessary to maintain H&H greater than 7/21. 3. Continue PPI drip for upper gastrointestinal bleed. 4. We will discuss with GI on-call about obtaining consent for this patient and possible EGD today if not tomorrow for evaluation of possible upper GI bleed. [facility]
--- NOTE | 2017-09-22 21:34 | OP ---
PREOPERATIVE DIAGNOSIS: Hematemesis. PROCEDURE: After informed consent was obtained, the patient was placed in the supine position. Anes thesia was not given; however, the patient was on propofol drip during the procedure. A forward-view ing endoscope was inserted into the esophagus under direct visualization with ease and passed to the second portion of the duodenum with ease. Second portion of duodenum and duodenal bulb were normal. No blood was seen in the duodenum. The pylorus, antrum, body, fundus, and cardia were normal except for some retained gastric contents which consisted of some blood clot and old food. No active bleed ing was seen. There did appear to be some mild gastritis throughout the stomach. The GE junction wa s normal with a large erosion occurring in the distal third of the esophagus consistent with NG traum a. No active bleeding was noted from the esophagus. ASSESSMENT: 1. Stress gastritis. 2. Nasogastric tube trauma of the esophagus. RECOMMENDATIONS: 1. Continue Protonix drip. 2. Monitor H&H.
[2017-09-23] MEDS: Sodium Bicarbonate 75 MEQ in Dextrose 5% in Water 500 ML IV SCH ×4 (01:36→07:25)
[2017-09-23] MEDS: Piperacillin/Tazobactam 2.25 GM in Sodium Chloride 0.9% 100 ML IVPB SCH ×4 (03:00→21:12)
[2017-09-23] MEDS: Pantoprazole 80 MG, Admixture Fee 1 EACH in Sodium Chloride 0.9% 100 ML IVP SCH ×2 (04:24→15:25)
[2017-09-23 05:27] LABS: Vancomycin, Trough 14.6 ug/mL
[2017-09-23] MEDS: Vancomycin HCl 500 MG in Sodium Chloride 0.9% 100 ML IVPB SCH (05:37)
[2017-09-23 05:52] LABS: Anion Gap 16 mmol/L (10-20); BUN (Urea Nitrogen) 120 mg/dL (8.4-25.7); Calc. Creatinine Clearance 12 mL/min (70-130); Calcium 7.9 mg/dL (7.8-10.44); Carbon Dioxide 22 mmol/L (23-31); Chloride 109 mmol/L (98-107); Estimated GFR-MDRD 11
[2017-09-23 06:05] LABS: Band 20 % (5-11); Hematocrit 26.1 % (42.0-52.0); Metamyelocyte 3 % (0-0); Myelocyte 1 % (0-0); Neutrophil 49 % (42-75); Red Blood Cell (RBC) Count 2.97 mill/uL (4.70-6.10); White Blood Cell (WBC) Count 14.3 thou/uL (4.8-10.8)
[2017-09-23 07:21] LABS: Oxyhemoglobin 85.1 % (94.0-97.0); Sodium 142 mmol/L (135-148)
[2017-09-23 07:27] LABS: Mode BILEVEL; Modified Allen's Test POSITIVE; PIP 24 cmH2O; Pressure Support 10 cmH2O; Vent YES
--- NOTE | 2017-09-23 08:01 | RAD ---
PORTABLE CHEST: HISTORY: Dyspnea. CCU followup. COMPARISON: 09/22/17. ET tube and NG tube and central line unchanged. Interstitial and hazy alveolar infiltrates again see n bilaterally without significant interval change. POS: [facility]
[2017-09-23] MEDS ORDERED: Furosemide 40 MG/4 ML VIAL SLOW IVP SCH (08:15)
--- NOTE | 2017-09-23 08:45 | PRG ---
DATE OF SERVICE: 09/23/2017 Mr. Salas is intubated on the vent. He was sedated last night, but his medication had been discontin ued, fentanyl and Diprivan. X-ray shows diffuse interstitial alveolar infiltrates. His estimated EF was decreased yesterday. Hi s pressors are Levophed and vasopressin. PHYSICAL EXAMINATION: VITAL SIGNS: Blood pressure 160/80, pulse 102, O2 sat 90%, respirations 22. In the process of tryin g to taper his pressors. I's and O's 3620 in, 295 out. NEURO: Neurologically he is encephalopathic, unresponsive, though he is thrashing around. CHEST: Chest revealed extensive rhonchi and crackles. CARDIAC: Sinus tachycardia. ABDOMEN: Soft. LABORATORY: White count 14,000, H&H 8 and 26, platelet count is 43, 49 segs, 20 bands, 3 metamyelocy ahsan. PO2 was 50, pCO2 39%, pH 7.45, on a bilevel of 26, PEEP of 10, BUN 120 and creatinine 5.21. IMPRESSION: 1. Respiratory failure. 2. Congestive heart failure. 3. Aspiration pneumonitis. 4. Hypoxic injury. 5. Renal failure. 6. Gastrointestinal bleed. 7. Leukemia. PLAN: Antibiotics to be continued. So far, all cultures are negative. Consider discontinuing the v ancomycin. He may need dialysis to improve his pulmonary status. Trial of Lasix is being given. Discontinue bicarbonate. We will follow. One-half hour of critical care time.
[2017-09-23] MEDS: Sodium Chloride 0.45% 1,000 ML IV SCH ×2 (09:02→16:46)
--- NOTE | 2017-09-23 09:16 | PRG ---
DATE OF SERVICE: 09/23/2017 SUBJECTIVE: Mr. Salas is a 72-year-old white male who was admitted for an acute respiratory failure and being followed by the Renal Service for his acute kidney injury/chronic renal failure?. Renal fu nction continues to worsen. He was initially found to be severely hypotensive. Several liters of fl uid have been given and pressor support was reinstituted. He has also received blood transfusion. H is renal function essentially remains unimproved. He continues to be intubated on ventilator support . PHYSICAL EXAMINATION: VITAL SIGNS: Blood pressure 136/61, heart rate 106, respiratory rate 24, pulse ox 99%. GENERAL: Intubated and unresponsive on ventilator support. SKIN: Adequate turgor. HEENT: Slightly pale conjunctivae, anicteric sclerae. NECK: No neck mass, no carotid bruits, no JVD. CHEST: No deformities. LUNGS: Decreased breath sounds. HEART: Normal sinus rhythm. No murmur, no gallops, no rubs. ABDOMEN: Globular, soft, nontender, no masses. EXTREMITIES: No edema. MEDICATIONS: Medications of 09/23/2017 was reviewed. LABORATORY DATA: Laboratories of 09/23/2017; white count 14.3, hemoglobin 8.9, sodium 143, potassium 3.9, chloride 109, carbon dioxide 22, BUN 120, creatinine 5.29, GFR 11 mL per minute, calcium 7.9. White count is 14.2 and hemoglobin 8.9. Urinalysis on 09/22/2017 showed specific gravity 1.026, protein of 300, rbc of 11-20, wbc 0-3. ASSESSMENT AND PLAN: 1. Acute kidney injury - I still suspect the possibility that this overall be hemodynamically mediat ed renal dysfunction. However, he has not improved his renal function in the last 24 hours in spite of optimizing his hemodynamics. Blood pressure is now improved. It is possible that this patient ma y have an underlying acute tubular necrosis. In this a.m., there is no indication for any emergent h emodialysis. Should the renal function worsen, we may need to consider a dialytic intervention. How ever, due to the patient's severe comorbid problems, my bias is not to initiate dialysis with this pa tient. We are trying to get in touch with the patient's next relative that can make a decision for h im. Again, as previously mentioned, my bias is not to offer dialysis if possible with this patient. Overall continue supportive care. 2. Hypertension - much improved with pressors and volume repletion. 3. Acute respiratory failure, Pulmonary following. I did discuss the case at length with Dr. Abelino nunn.
[2017-09-23] MEDS ORDERED: Pancrelipase DR 12000 1 CAP FS PRN (09:30)
[2017-09-23] MEDS ORDERED: Sodium Bicarbonate Tab 325 MG TAB PER TUBE PRN (09:30)
--- NOTE | 2017-09-23 10:23 | PDOC.PN ---
- Subjective Encounter Start Date: 09/23/17 Encounter Start Time: 09:30 Subjective: intubated - Objective MAR Reviewed: Yes Vital Signs & Weight: Vital Signs (12 hours) Temp Pulse Resp BP Pulse Ox 09/23/17 06:59 89 142/68 H 09/23/17 06:57 89 26 H 99 09/23/17 06:00 26 H 09/23/17 04:00 26 H 09/23/17 03:00 99.4 F 09/23/17 02:27 83 114/49 L 09/23/17 02:00 26 H 09/23/17 00:11 81 120/61 09/23/17 00:00 26 H 09/22/17 23:00 99.1 F 09/22/17 22:24 83 113/56 L Weight Admit Weight 154 lb Weight 168 lb 6.931 oz Most Recent Monitor Data Heart Rate from ECG 78 NIBP 113/57 NIBP BP-Mean 82 Respiration from ECG 26 SpO2 98 I&O: 09/22/17 09/23/17 09/24/17 06:59 06:59 06:59 Intake Total 5538.7 3620.7 Output Total 60 295 Balance 5478.7 3325.7 Result Diagrams: 09/23/17 04:56 09/23/17 04:56 Additional Labs: Accuchecks 09/23/17 09/23/17 09/23/17 09:05 08:02 05:59 POC Glucose 114 H 123 H 145 H 09/23/17 09/23/17 09/23/17 05:02 04:00 03:05 POC Glucose 146 H 163 H 182 H 09/23/17 09/23/17 09/23/17 02:08 00:55 00:08 POC Glucose 177 H 165 H 136 H 09/22/17 09/22/17 09/22/17 23:16 22:12 21:12 POC Glucose 133 H 145 H 154 H 09/22/17 09/22/17 09/22/17 20:18 19:33 18:03 POC Glucose 167 H 145 H 152 H 09/22/17 09/22/17 09/22/17 17:20 16:17 15:35 POC Glucose 161 H 193 H 194 H 09/22/17 09/22/17 09/22/17 14:30 12:38 10:51 POC Glucose 216 H 166 H 155 H Phys Exam - Physical Examination intubated intubated Neck: supple Respiratory: no wheezing, no rhonchi, clear to auscultation bilateral Cardiovascular: RRR Gastrointestinal: positive bowel sounds Musculoskeletal: edema present intubated sedated Deviation from normal: mx ecchymoses Dx/Plan (1) Acute blood loss anemia Code(s): D62 - ACUTE POSTHEMORRHAGIC ANEMIA Status: Acute (2) Hematemesis Code(s): K92.0 - HEMATEMESIS Status: Acute (3) DKA (diabetic ketoacidosis) Code(s): E13.10 - OTH DIABETES MELLITUS WITH KETOACIDOSIS WITHOUT COMA Status : Acute (4) Respiratory failure Code(s): J96.90 - RESPIRATORY FAILURE, UNSP, UNSP W HYPOXIA OR HYPERCAPNIA Status: Acute (5) Leukocytosis Code(s): D72.829 - ELEVATED WHITE BLOOD CELL COUNT, UNSPECIFIED Status: Acute (6) Sepsis associated hypotension Code(s): A41.9 - SEPSIS, UNSPECIFIED ORGANISM Status: Acute - Plan cont current plan of care input from renal and pulmonary appreciated -: condition is guarded * . - Discharge Day Encounter end time: 10:23
--- NOTE | 2017-09-23 11:06 | PRG ---
DATE OF SERVICE: 09/23/2017 INITIAL REASON FOR CONSULTATION: Hematemesis. SUBJECTIVE: Overnight, the patient without any problems or complaints. No further destabilization of current clinical status. He underwent EGD yesterday with no discernible findings or evidence of active bleeding except for minimal NG tube trauma in the distal esophagus. INPATIENT MEDICATIONS: Reviewed. LABORATORY DATA: CBC with white blood cell count of 14.3, hemoglobin 8.9, hematocrit 26.1, platelets 43. Chemistry with sodium of 143, potassium 3.9, chloride 109, carbon dioxide 22, BUN 120, creatinine 5.21, glucose 140. IMAGING: EGD performed on 09/22/2017 showing normal proximal and mid esophagus with mild erosion of the distal esophagus felt to be due to NG tube trauma. Normal mucosa was seen in the pylorus, antrum, body, fundus and cardia except for some retained gastric content and which consisted of some blood clot and old food. Normal mucosa was seen in the duodenal bulb and second portion of the duodenum, no evidence of active bleeding seen during the exam. 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 Hematemesis. The patient presenting with a very complicated medical picture including sepsis , elevated troponins and organ dysfunction with significantly elevated BUN and creatinine and diabetic ketoacidosis with severe metabolic acidosis noted on admission, he was also noted to have significant hematemesis, both before and after intubation, currently hemoglobin and hematocrit was stable after infusion of 2 units of packed red blood cells. EGD performed on 09/22/2017 did not show any significant findings for continued active bleeding. At this point, the most likely reason for his hematemesis was either stress gastritis or NG tube trauma or even possibly a Deann-Gustafson tear that has healed at this point in time. Today, hemoglobin and hematocrit was is stable when compared to previous. Further indicative of no further gastrointestinal bleeding. PLAN: 1. Primary team to continue resuscitative efforts. I appreciate the system assistance of the ICU team. 2. Continue to trend H&H and transfuse as necessary to maintain H&H greater than 7/21. 3. Can transfer to PPI 40 mg b.i.d. today given lack of GI bleeding findings on EGD. 4. Further endoscopic intervention is not necessary given the lack of findings for upper GI bleeding. We will sign off at this time. Please call with any additional questions. [facility]
[2017-09-23] MEDS ORDERED: Dextrose 50% Abboject 50 ML SYRINGE IVP PRN (13:59)
[2017-09-23] MEDS ORDERED: Dextrose 5% in Water 1,000 ML IV PRN (13:59)
[2017-09-23] MEDS: Propofol 1,000 MG/100 ML VIAL IV PRN (15:13)
[2017-09-23] MEDS: Insulin Regular 300 UNITS/3 ML VIAL SC PRN ×3 (16:45→23:58)
[2017-09-23] MEDS: Acetaminophen 650 MG Suppository PR PRN (17:51)
[2017-09-23] MEDS: Atorvastatin Calcium 20 MG TAB PO SCH (20:35)
[2017-09-23] MEDS: NPH, Human Insulin Isophane 300 UNIT/3 ML VIAL SC SCH (23:58)
[2017-09-24] MEDS: Pantoprazole 80 MG, Admixture Fee 1 EACH in Sodium Chloride 0.9% 100 ML IVP SCH ×2 (00:53→08:39)
[2017-09-24] MEDS: Propofol 1,000 MG/100 ML VIAL IV PRN ×3 (02:23→19:58)
[2017-09-24] MEDS: Piperacillin/Tazobactam 2.25 GM in Sodium Chloride 0.9% 100 ML IVPB SCH ×3 (03:04→16:21)
[2017-09-24] MEDS: Insulin Regular 300 UNITS/3 ML VIAL SC PRN ×5 (03:06→20:46)
[2017-09-24 05:16] LABS: Anion Gap 19 mmol/L (10-20); Calc. Creatinine Clearance 10 mL/min (70-130); Calcium 8.1 mg/dL (7.8-10.44); Carbon Dioxide 21 mmol/L (23-31); Chloride 108 mmol/L (98-107); Estimated GFR-MDRD 8
[2017-09-24 05:28] LABS: BUN (Urea Nitrogen) 136 mg/dL (8.4-25.7)
[2017-09-24 05:45] LABS: Band 9 % (5-11); Hematocrit 32.4 % (42.0-52.0); Mean Platelet Volume 15.1 fL (7.4-10.4); Metamyelocyte 3 % (0-0); Myelocyte 1 % (0-0); Neutrophil 67 % (42-75); Nucleated RBC 1 % (0); Reactive Lymphocytes 1 % (0-10); Red Blood Cell (RBC) Count 3.63 mill/uL (4.70-6.10); Tear Drops MODERATE= 6-15 cells (100X) (0-1/hpf); White Blood Cell (WBC) Count 20.8 thou/uL (4.8-10.8)
[2017-09-24 07:03] LABS: Oxyhemoglobin 90.3 % (94.0-97.0); Sodium 141 mmol/L (135-148)
[2017-09-24 07:09] LABS: Modified Allen's Test NOT DONE; Pressure Support 10 cmH2O; Vent YES
[2017-09-24 07:10] LABS: Mode BILEVEL LOW 12
[2017-09-24] MEDS: NPH, Human Insulin Isophane 300 UNIT/3 ML VIAL SC SCH (08:33)
--- NOTE | 2017-09-24 08:37 | RAD ---
FRONTAL VIEW CHEST: Date: 09/24/17 COMPARISON: Previous day. INDICATION: ICU follow-up. FINDINGS: Supportive lines and tubes are grossly stable. Diffuse bilateral pulmonary parenchymal opacities trudy in, as well as pleural based density at each inferior hemithorax. IMPRESSION: Grossly stable chest. POS: [facility]
--- NOTE | 2017-09-24 08:44 | PRG ---
DATE OF SERVICE: 09/24/2017 This morning he is on the vent. Pretty much unresponsive. PHYSICAL EXAMINATION: VITAL SIGNS: His pulse is 100, blood pressure 160/83, sats 100%, respirations 27. His I's and O's o mayra the last 24 hours have been 276 in, 170 out. CHEST: Chest reveals extensive rhonchi and crackles. CARDIAC: Sinus tachycardia. ABDOMEN: Soft. NEURO: Neurologically, he is encephalopathic. LABORATORY: White count 20,000, H&H 9 and 32, platelet count is 26, 7 segs. His pO2 65, pCO2 36.36, rate 20, 50% bilevel, PEEP of 12. BUN and creatinine of 136 and 0.8. X-ray shows diffuse pulmonary infiltrates. He has Staphylococcus aureus apparently in his sputum. IMPRESSION: 1. Respiratory failure, aspiration. 2. Gastrointestinal bleed. 3. Probably anoxic injury. 4. Worsening renal failure. 5. Unknown hematological problem. PLAN: I discussed with Dr. Trevizo yesterday. He does not think the patient is a candidate for dialysis . Continue supportive care. Unfortunately he has no family members to make any decisions. Will start low dose feedings. We will discuss with the appropriate people today regarding ongoing ca re and prognosis. One-half hour critical care time.
[2017-09-24] MEDS ORDERED: NPH, Human Insulin Isophane 300 UNIT/3 ML VIAL SC SCH (09:00)
[2017-09-24] MEDS ORDERED: Propofol 1,000 MG/100 ML VIAL IV ONE (09:13)
[2017-09-24] MEDS: Sodium Chloride 0.45% 1,000 ML IV SCH (09:20)
[2017-09-24] MEDS: Insulin Detemir 100 UNITS/ML 15 UNITS in Pre-Filled Syringe 1 EACH SC SCH ×2 (09:22→20:01)
[2017-09-24] MEDS: Acetaminophen 650 MG Suppository PR PRN (11:14)
--- NOTE | 2017-09-24 13:18 | PDOC.PN ---
- Subjective Encounter Start Date: 09/24/17 Encounter Start Time: 12:00 -: non-verbal - Objective MAR Reviewed: Yes Vital Signs & Weight: Vital Signs (12 hours) Temp Pulse Resp BP Pulse Ox 09/24/17 12:09 96 132/66 09/24/17 12:00 98.9 F 09/24/17 11:00 101.0 F H 09/24/17 08:00 98.4 F 98 27 H 09/24/17 06:42 86 110/54 L 100 09/24/17 06:40 87 21 H 100 09/24/17 06:00 23 H 09/24/17 04:00 25 H 09/24/17 03:22 93 104/48 L 09/24/17 03:00 98.0 F 09/24/17 02:00 22 H Weight Admit Weight 154 lb Weight 168 lb 6.931 oz Most Recent Monitor Data Heart Rate from ECG 96 NIBP 140/70 NIBP BP-Mean 116 Respiration from ECG 21 SpO2 100 I&O: 09/23/17 09/24/17 09/25/17 06:59 06:59 06:59 Intake Total 3620.7 2760.8 60 Output Total 295 170 70 Balance 3325.7 2590.8 -10 Result Diagrams: 09/24/17 04:39 09/24/17 04:39 Additional Labs: Accuchecks 09/24/17 09/23/17 09/23/17 03:03 23:40 20:35 POC Glucose 305 H 321 H 237 H 09/23/17 16:42 POC Glucose 213 H Radiology Reviewed by me: Yes Phys Exam - Physical Examination sedated and intubated ett in place Neck: supple diminshed Cardiovascular: RRR enoch Gastrointestinal: soft Musculoskeletal: edema present sedated and intubated Deviation from normal: sedated and intubated Deviation from normal: ecchymoses Dx/Plan (1) Acute blood loss anemia Code(s): D62 - ACUTE POSTHEMORRHAGIC ANEMIA Status: Acute (2) Hematemesis Code(s): K92.0 - HEMATEMESIS Status: Acute (3) DKA (diabetic ketoacidosis) Code(s): E13.10 - OTH DIABETES MELLITUS WITH KETOACIDOSIS WITHOUT COMA Status : Acute (4) Respiratory failure Code(s): J96.90 - RESPIRATORY FAILURE, UNSP, UNSP W HYPOXIA OR HYPERCAPNIA Status: Acute (5) Leukocytosis Code(s): D72.829 - ELEVATED WHITE BLOOD CELL COUNT, UNSPECIFIED Status: Acute (6) Sepsis associated hypotension Code(s): A41.9 - SEPSIS, UNSPECIFIED ORGANISM Status: Acute - Plan cont current plan of care, continue antibiotics condition guarded * . - Discharge Day Encounter end time: 13:19
[2017-09-24] MEDS ORDERED: Furosemide 100 MG/10 ML VIAL SLOW IVP SCH (15:30)
--- NOTE | 2017-09-24 15:36 | PRG ---
DATE OF SERVICE: 09/24/2017 RENAL MEDICINE SUBJECTIVE: The patient relatively remains unchanged. No acute events noted. We are following him up for his acute kidney injury secondary to presumed acute tubular necrosis. He remains to have decr eased urine output. Renal function remains unimproved. His overall condition also remains unchanged . PHYSICAL EXAMINATION: GENERAL: Sedated and intubated on ventilator support. VITAL SIGNS: Blood pressure is noted at 134/60, heart rate 96, respiratory rate 36, pulse ox 100%. HEENT: He has pinkish conjunctivae, anicteric sclerae. NECK: No neck mass, no carotid bruits, no JVD. CHEST: No deformities. LUNGS: Clear breath sounds. No wheezing, no crackles. HEART: Normal sinus rhythm. No murmur, no gallops, no rubs. ABDOMEN: Globular, soft, nontender. No masses. EXTREMITIES: No edema. MEDICATIONS: Medications of 09/24/2017 was reviewed. LABORATORY DATA: Laboratories of 09/24/2017; white count 20.8, hemoglobin 9.9, and platelet count 26 ,000. Sodium 143, potassium 4.6, chloride 108, carbon dioxide 21, BUN 136, creatinine 6.81, glucose 329, and calcium 8.1. IMAGING DATA: Chest x-ray unchanged, diffuse infiltrates. ASSESSMENT AND PLAN: 1. Acute kidney injury secondary to presumed acute tubular necrosis. I am trying to hold off dialys is until I can see some improvement with patient's overall medical condition. Please note he has sev eral comorbid problems. My bias is not to introduce the dialysis unless we think the patient will be a viable long-term. Continue supportive care. No indication for an emergent hemodialysis today. 2. Sepsis - on empiric IV antibiotics. 3. Acute respiratory failure on ventilator support. Pulmonary is following. 4. Elevated white count/decreased platelet count - underlying leukemia? Hematology following conser vative management.
[2017-09-24] MEDS: Pantoprazole 40 MG VIAL IVP SCH (20:00)
[2017-09-24] MEDS: Atorvastatin Calcium 20 MG TAB PO SCH (20:00)
[2017-09-25] MEDS: Insulin Regular 300 UNITS/3 ML VIAL SC PRN ×6 (00:19→20:31)
[2017-09-25] MEDS: Piperacillin/Tazobactam 2.25 GM in Sodium Chloride 0.9% 100 ML IVPB SCH ×2 (01:50→08:01)
[2017-09-25 05:08] LABS: Hematocrit 29.4 % (42.0-52.0); Mean Platelet Volume 14.3 fL (7.4-10.4); White Blood Cell (WBC) Count 34.1 thou/uL (4.8-10.8)
[2017-09-25 05:10] LABS: Anion Gap 18 mmol/L (10-20); Calc. Creatinine Clearance 9 mL/min (70-130); Calcium 8.3 mg/dL (7.8-10.44); Carbon Dioxide 22 mmol/L (23-31); Chloride 107 mmol/L (98-107); Estimated GFR-MDRD 7
[2017-09-25 05:22] LABS: BUN (Urea Nitrogen) 152 mg/dL (8.4-25.7)
[2017-09-25 05:28] LABS: Band 13 % (5-11); Hypochromia SLIGHT = 6-15 cells (100X) (0-5/hpf); Metamyelocyte 5 % (0-0); Myelocyte 2 % (0-0); Neutrophil 61 % (42-75); Nucleated RBC 4 % (0)
[2017-09-25] MEDS: Propofol 1,000 MG/100 ML VIAL IV PRN ×2 (06:35→15:30)
[2017-09-25] MEDS: Insulin Detemir 100 UNITS/ML 15 UNITS in Pre-Filled Syringe 1 EACH SC SCH ×2 (08:00→20:50)
[2017-09-25] MEDS: Pantoprazole 40 MG VIAL IVP SCH ×2 (08:01→20:22)
[2017-09-25] MEDS ORDERED: Cefepime 0.5 GM in Admixture Fee 1 EACH IVPB SCH (09:00)
--- NOTE | 2017-09-25 09:36 | PRG ---
DATE OF SERVICE: 09/25/2017 SUBJECTIVE: Mr. Faraz Salas remains on the vent intubated, encephalopathic. OBJECTIVE: VITAL SIGNS: Blood pressure 140/70, he is off pressors. Sats are 100%, respirations 26. His I's an d O's have been with 1828 in, 305 out. CHEST: Reveals extensive rhonchi. CARDIAC: Sinus tachycardia. ABDOMEN: Soft. NEUROLOGIC: He is unresponsive. He is slightly sedated. LABORATORY DATA: White count 79167, H&H is 9 and 29, platelet count 23,000. Creatinine is 7.6, BUN 15. IMPRESSION: 1. Respiratory failure. 2. Worsening renal failure. 3. Staph methicillin-resistant Staphylococcus aureus, sputum, pneumonia. 4. Unknown hematological problem, leukemia versus myeloproliferative disorder. 5. Gastrointestinal bleed. PLAN: At this stage, I have added Zyvox to his present antibiotic regime. Vent being adjusted. It is unclear whether he is a candidate for any dialysis at this stage. His overall prognosis is grave. Unfortunately, there are no family members to contact at this stage. One-half hour critical care time.
[2017-09-25] MEDS: Linezolid 600 MG in Premix Bag 1 BAG IVPB SCH ×2 (09:45→20:23)
[2017-09-25] MEDS: Cefepime 0.5 GM, Admixture Fee 1 EACH in Sterile Water 10 ML SLOW IVP SCH ×2 (10:39→20:22)
--- NOTE | 2017-09-25 10:46 | PDOC.PN ---
- Subjective Encounter Start Date: 09/25/17 Encounter Start Time: 10:00 -: non-verbal - Objective MAR Reviewed: Yes Vital Signs & Weight: Vital Signs (12 hours) Temp Pulse Resp BP Pulse Ox 09/25/17 10:00 26 H 09/25/17 09:00 99.1 F 09/25/17 08:59 109 H 162/77 H 09/25/17 08:14 102 H 147/70 H 100 09/25/17 08:12 102 H 24 H 100 09/25/17 08:00 100.1 F H 102 H 24 H 09/25/17 07:00 100.1 F H 09/25/17 04:00 99 F 09/25/17 03:04 103 H 125/58 L 09/25/17 00:44 105 H 130/62 09/25/17 00:00 99.5 F Weight Admit Weight 154 lb Weight 172 lb 2.896 oz Most Recent Monitor Data Heart Rate from ECG 106 NIBP 127/55 NIBP BP-Mean 67 Respiration from ECG 26 SpO2 87 I&O: 09/24/17 09/25/17 09/26/17 06:59 06:59 06:59 Intake Total 2760.8 1828 60 Output Total 170 305 115 Balance 2590.8 1523 -55 Result Diagrams: 09/25/17 04:16 09/25/17 04:16 Additional Labs: Accuchecks 09/25/17 09/25/17 09/24/17 07:41 04:23 20:44 POC Glucose 205 H 228 H 240 H 09/24/17 09/24/17 09/24/17 16:08 11:14 08:23 POC Glucose 273 H 299 H 319 H Phys Exam - Physical Examination SEDATED AND INTUBATED ETT IN PLACE COARSE Cardiovascular: irregular SINUS TACHY Gastrointestinal: soft Musculoskeletal: edema present SEDATED AND INTUBATED Dx/Plan (1) Acute blood loss anemia Code(s): D62 - ACUTE POSTHEMORRHAGIC ANEMIA Status: Acute (2) Hematemesis Code(s): K92.0 - HEMATEMESIS Status: Acute (3) DKA (diabetic ketoacidosis) Code(s): E13.10 - OTH DIABETES MELLITUS WITH KETOACIDOSIS WITHOUT COMA Status : Acute (4) Respiratory failure Code(s): J96.90 - RESPIRATORY FAILURE, UNSP, UNSP W HYPOXIA OR HYPERCAPNIA Status: Acute (5) Leukocytosis Code(s): D72.829 - ELEVATED WHITE BLOOD CELL COUNT, UNSPECIFIED Status: Acute (6) Sepsis associated hypotension Code(s): A41.9 - SEPSIS, UNSPECIFIED ORGANISM Status: Acute - Plan cont current plan of care, continue antibiotics CONDITION WORSENING -: AWAITING INFO FROM REFERENCE TO WITHDRAWAL * .
[2017-09-25] MEDS ORDERED: Digoxin 0.5 MG/2 ML AMP SLOW IVP SCH (11:30)
[2017-09-25] MEDS: Amiodarone HCl 450 MG in Dextrose 5% in Water 250 ML IVPB SCH ×6 (11:57→20:23)
[2017-09-25] MEDS ORDERED: Amiodarone HCl 150 MG, Admixture Fee 1 EACH in Dextrose 5% in Water 100 ML IVPB SCH ×3 (12:00)
--- NOTE | 2017-09-25 12:07 | PRG ---
DATE OF SERVICE: 09/25/2017 RENAL MEDICINE SUBJECTIVE: Mr. Salas is a 72-year-old white male who was seen for his acute kidney injury. Renal f unction has been worsening over time. He most likely has superimposed ischemic acute tubular necrosi s. He is not improving in spite of volume repletion. We are currently holding dialysis. Our feeling is that this patient may not be a dialysis candidate due to his very poor prognosis. No acute events last night. OBJECTIVE: VITAL SIGNS: Blood pressure 127/55, heart rate 106, respiratory rate 26, pulse ox 87%. GENERAL: Noted to be sedated, intubated and on ventilator support. SKIN: Adequate turgor. HEENT: Pinkish conjunctivae, anicteric sclerae. NECK: No neck mass, no carotid bruits, no JVD. CHEST: No deformities. LUNGS: Decreased breath sounds. HEART: Normal sinus rhythm. No murmur, no gallops, no rubs. ABDOMEN: Globular, soft. EXTREMITIES: Trace edema. MEDICATIONS: 09/25/2017 was reviewed. LABORATORY DATA: Laboratories of 09/25/2017, white count 34.1, hemoglobin 9.6. Sodium 143, potassiu m 4.4, chloride 107, carbon dioxide 22, BUN 152, creatinine 7.64, glucose 234, calcium 8.3. ASSESSMENT AND PLAN: Acute kidney injury, most likely secondary to acute tubular necrosis. No indic ation for any dialysis. I have sent to offer dialysis for this patient since he may have no meaningf ul recovery with these multiple comorbid problems. I feel that supportive care as indicated with thi s patient. For the moment, I agree with current management.
[2017-09-25] MEDS: Sodium Chloride 0.45% 1,000 ML IV SCH (15:23)
[2017-09-25] MEDS: Atorvastatin Calcium 20 MG TAB PO SCH (20:22)
[2017-09-25] MEDS: Acetaminophen 650 MG Suppository PR PRN (21:38)
[2017-09-26] MEDS: Propofol 1,000 MG/100 ML VIAL IV PRN (00:10)
[2017-09-26] MEDS: Insulin Regular 300 UNITS/3 ML VIAL SC PRN ×5 (00:21→22:08)
[2017-09-26 05:36] LABS: Anion Gap 21 mmol/L (10-20); Calc. Creatinine Clearance 8 mL/min (70-130); Calcium 8.7 mg/dL (7.8-10.44); Carbon Dioxide 19 mmol/L (23-31); Chloride 105 mmol/L (98-107); Estimated GFR-MDRD 6
[2017-09-26 05:47] LABS: BUN (Urea Nitrogen) 166 mg/dL (8.4-25.7)
[2017-09-26 06:34] LABS: Band 8 % (5-11); Blast 7 % (0-0); Hematocrit 28.4 % (42.0-52.0); Metamyelocyte 12 % (0-0); Myelocyte 5 % (0-0); Neutrophil 41 % (42-75); Nucleated RBC 33 % (0); Polychromasia SLIGHT = 2-3 cells (100X) (0-2/hpf); Reactive Lymphocytes 5 % (0-10); Red Blood Cell (RBC) Count 3.16 mill/uL (4.70-6.10); Schistocytes SLIGHT = 2-5 cells (100X) (0-1/hpf); White Blood Cell (WBC) Count 35.4 thou/uL (4.8-10.8)
[2017-09-26 08:30] LABS: Oxyhemoglobin 81.4 % (94.0-97.0); Sodium 136 mmol/L (135-148)
[2017-09-26 08:32] LABS: Mechanical Tidal Volume 500 ml; Mode SIMV/PSV; Pressure Support 10 cmH2O; Vent YES
--- NOTE | 2017-09-26 09:11 | RAD ---
PORTABLE CHEST: HISTORY: Dyspnea. Ventilator and CCU followup. COMPARISON: 09/24/17. FINDINGS/IMPRESSION: ET tube and NG tube remain in place. Central line unchanged. This is exam is degraded due to motion artifact; however, there continues to be evidence of diffuse vascular and interstitial prominence wi th bibasilar opacification consistent with effusions and bibasilar atelectasis. The right basilar op acity has increased since 09/24/17. Otherwise, the chest appears stable. POS: ZULEYKAH
[2017-09-26] MEDS: Insulin Detemir 100 UNITS/ML 15 UNITS in Pre-Filled Syringe 1 EACH SC SCH ×2 (09:19→22:05)
[2017-09-26] MEDS: Cefepime 0.5 GM, Admixture Fee 1 EACH in Sterile Water 10 ML SLOW IVP SCH ×2 (09:19→22:06)
[2017-09-26] MEDS: Pantoprazole 40 MG VIAL IVP SCH ×2 (09:20→22:04)
[2017-09-26] MEDS: Linezolid 600 MG in Premix Bag 1 BAG IVPB SCH ×2 (09:24→22:05)
--- NOTE | 2017-09-26 11:55 | PRG ---
DATE OF SERVICE: 09/26/2017 SUBJECTIVE: Mr. Salas is a 72-year-old White male who was seen on the date of service for his acute kidney injury. A presumptive acute tubular necrosis has been made. Patient relatively remains uncha nged and he is improved. He continues to be unresponsive. His renal function continues to worsen. OBJECTIVE: VITAL SIGNS: Blood pressure is 125/48, heart rate 69, respiratory rate 29, pulse ox 90%. GENERAL: The patient is sedated. The patient is intubated, unresponsive on ventilator support SKIN: Adequate turgor. HEENT: He has slightly pale conjunctivae, anicteric sclerae. NECK: No neck mass, no carotid bruits, no JVD. CHEST: No deformities. LUNGS: Decreased breath sounds. HEART: Normal sinus rhythm. No murmur, no gallops, no rubs. ABDOMEN: Globular, soft, nontender, no masses. EXTREMITIES: No edema, no deformities. MEDICATIONS: Of 09/26/2017 was reviewed. LABORATORY DATA: Of 09/26/2017, white count 35.4, hemoglobin 9.3, sodium 140, potassium 4.3, chlorid e 105, carbon dioxide 19, BUN 166, creatinine 8.85, glucose is 182, calcium 8.7. ASSESSMENT AND PLAN: 1. Acute kidney injury secondary to presumed ischemic acute tubular necrosis. No dialysis at the pr esent time. I did not offer hemodialysis with this patient, which I feel at the present time that he may have no meaningful recovery. Continue conservative management with this patient. Continue to h old dialysis. 2. Sepsis, on IV antibiotics. 2. Acute respiratory failure, followed by Pulmonary Medicine. Agree with current management.
[2017-09-26] MEDS: Acetaminophen 650 MG Suppository PR PRN (12:37)
[2017-09-26] MEDS: Amiodarone HCl 450 MG in Dextrose 5% in Water 250 ML IVPB SCH ×2 (12:51)
--- NOTE | 2017-09-26 13:30 | PRG ---
DATE OF SERVICE: 09/26/2017 SUBJECTIVE: Mr. Faraz Salas remains intubated on the vent without much sedation. OBJECTIVE: VITAL SIGNS: His blood pressure 129/40, respirations are set at 30, pulse is 100. GENERAL: He is unresponsive. CHEST: Bilateral rhonchi. CARDIAC: Sinus tachycardia. ABDOMEN: Soft. No masses. LABORATORY DATA: White count of 35,000, hemoglobin and hematocrit 9 and 38, platelet count is 37. O n his peripheral smear. A pO2 was 55, pCO2 of 72 at rate of 20, 70% FiO2, and PEEP of 10. IMAGING DATA: His x-rays taken today shows extensive bilateral infiltrates along with large pleural effusion. BUN and creatinine are 166 and 8.5. IMPRESSION: 1. Multiorgan failure. 2. Respiratory failure. 3. Bilateral pleural effusion. 4. Methicillin-resistant Staphylococcus aureus pneumonia. 5. Worsening renal failure. 6. Encephalopathy. 7. Anoxic injury. PLAN: There are no family members. Once again, the warden says continue supportive care. I will di scontinue blood gases. I see no reason to do anymore x-rays. Unfortunately, we have no one to discu ss his ongoing care, regarding comfort care, extubation, etc. Prognosis is clearly poor. He is eventually going to have a cardiac arrest. Continue present comfort care.
--- NOTE | 2017-09-26 14:17 | PRG ---
DATE OF SERVICE: 09/26/2017 SUBJECTIVE: The patient is seen and examined at bedside. The two guards in front of the door of his room. He is orally intubated. PHYSICAL EXAMINATION: VITAL SIGNS: Blood pressure is 144/51, his pulse is 95, respiratory rate 33, and saturation is 91%. He is on a ventilator. His urine output is approximately 300 mL for the last 24 hours. LUNGS: Breath sounds somewhat diminished at both bases. HEART: S1, S2 normal. ABDOMEN: Soft, nondistended. EXTREMITIES: No clubbing, cyanosis or edema except for both hands, which show approximately 2+ perip heral edema. NEUROLOGIC: Postponed since he is sedated at the time of my evaluation. LABORATORY DATA: Showed white count of 35.4, hemoglobin 9.3, hematocrit 28.4, platelet count is 37,0 00 which is up from 23,000 yesterday. His ABGs showed pH of 7.22, pCO2 of 45.9 and pO2 is 55.3. His sodium is 140, potassium 5.3, chloride 105, CO2 19, BUN 166, and creatinine 8.85. MICROBIOLOGY: No new findings. IMPRESSION: 1. Acute posthemorrhagic anemia. 2. Diabetic ketoacidosis. 3. Respiratory failure on a ventilator. 4. Leukocytosis. 5. Sepsis associated with hypotension. 6. Methicillin-resistant Staphylococcus aureus pneumonia. 7. Unknown hematological problem, Leukemia versus myeloproliferative disorder. 8. Gastroesophageal bleed. PLAN: Continue mechanical ventilation. He will continue on Zyvox and cefepime. He will continue am iodarone and he was found to be in atrial fibrillation with rapid ventricular response and now his ra te is controlled. He will continue on digoxin and he will continue on PPI for GI bleeding coverage. The patient's condition is gradually getting worse, kidney function is shutting down. He became jarret guric, now he is anuric. His urine output is less than 300. There is no family. The patient will c ontinue on a current regimen.
[2017-09-26] MEDS: Sodium Chloride 0.45% 1,000 ML IV SCH ×2 (18:53→20:58)
[2017-09-26] MEDS: Atorvastatin Calcium 20 MG TAB PO SCH (22:06)
[2017-09-27] MEDS: Insulin Regular 300 UNITS/3 ML VIAL SC PRN ×6 (02:25→21:03)
[2017-09-27] MEDS: Amiodarone HCl 450 MG in Dextrose 5% in Water 250 ML IVPB SCH ×4 (04:32→16:14)
[2017-09-27 06:14] LABS: Hematocrit 28.1 % (42.0-52.0); Mean Platelet Volume 10.4 fL (7.4-10.4); Red Blood Cell (RBC) Count 3.15 mill/uL (4.70-6.10)
[2017-09-27 06:21] LABS: Anion Gap 25 mmol/L (10-20); Calc. Creatinine Clearance 7 mL/min (70-130); Calcium 8.4 mg/dL (7.8-10.44); Carbon Dioxide 16 mmol/L (23-31); Chloride 101 mmol/L (98-107); Estimated GFR-MDRD 5
[2017-09-27 06:29] LABS: Band 6 % (5-11); Metamyelocyte 3 % (0-0); Myelocyte 4 % (0-0); Neutrophil 53 % (42-75); Nucleated RBC 4 % (0)
[2017-09-27 06:32] LABS: BUN (Urea Nitrogen) 197 mg/dL (8.4-25.7)
[2017-09-27] MEDS: Insulin Detemir 100 UNITS/ML 15 UNITS in Pre-Filled Syringe 1 EACH SC SCH ×2 (08:12→21:01)
[2017-09-27] MEDS: Pantoprazole 40 MG VIAL IVP SCH ×2 (08:12→20:59)
[2017-09-27] MEDS: Cefepime 0.5 GM, Admixture Fee 1 EACH in Sterile Water 10 ML SLOW IVP SCH (08:12)
[2017-09-27] MEDS: Linezolid 600 MG in Premix Bag 1 BAG IVPB SCH ×2 (08:12→20:55)
--- NOTE | 2017-09-27 09:31 | PRG ---
DATE OF SERVICE: 09/27/2017 RENAL MEDICINE SUBJECTIVE: Mr. Salas is a 72-year-old white male. He is being followed by the Renal Service for hi s acute kidney injury - secondary to presumed acute tubular necrosis. The patient remains improved o mayra the last several days with no acute event. He could not be weaned off. The feeling he may have had anoxic encephalopathy from his arrest. The dialysis not being offered due to poor prognosis with this patient. PHYSICAL EXAMINATION: VITAL SIGNS: Blood pressure is 168/47, heart rate 75, respiratory rate 25, pulse ox 94%. GENERAL: Patient is unresponsive, intubated on ventilator support. SKIN: Adequate turgor. HEENT: He has pinkish conjunctivae, anicteric sclerae. NECK: No neck mass, no carotid bruits, no JVD. CHEST: No deformities. LUNGS: Decreased breath sounds. HEART: Normal sinus rhythm. No murmur, no gallops, no rubs. ABDOMEN: Globular, soft, nontender, no masses. EXTREMITIES: No edema. MEDICATIONS: Of 09/27/2017 was reviewed. LABORATORY DATA: Of 09/27/2017, white count 53, hemoglobin 9.1. Sodium 136, potassium is now 6.3, c hloride 101, carbon dioxide 16, BUN 197, creatinine 10.22, glucose 309, and calcium 8.4. ASSESSMENT AND PLAN: Acute kidney injury - secondary to ischemic acute tubular necrosis. Worsening renal dysfunction. Dialysis is not being offered due to the fact that the patient has multiple comor bid problems and most likely, will have no significant recovery. Consider placing this patient to [facility]. I would not even correct his potassium of 6.3. Overall, continue supportive care.
--- NOTE | 2017-09-27 12:13 | PRG ---
DATE OF SERVICE: 09/27/2017 SUBJECTIVE: This morning, he is in no sedation and remains encephalopathic and obtunded. The pupils are about 3 mm. PHYSICAL EXAMINATION: VITAL SIGNS: Blood pressure 164/40, pulse 80, respirations 20, unresponsive. CHEST: Reveals extensive rhonchi and crackles. CARDIAC: Sinus tachycardia. ABDOMEN: Soft. LABORATORY DATA: White count 15,000, hemoglobin and hematocrit is 9 and 28, platelet count 58 with l eft shift. BUN and creatinine are 197 and 10.25. IMPRESSION: 1. Multiorgan failure. 2. Probably leukemia. 3. Renal failure. 4. Anoxic injury. 5. Gastrointestinal bleed. PLAN: He is in comfort care. He has no family members. is to make him DNR at this stage, noth ing additional to offer. Prognosis is grave. One half hour critical care time.
[2017-09-27 14:44] VITALS: BMI 24.7
[2017-09-27] MEDS ORDERED: Sodium Bicarb 50 MEQ/50 ML Abboject 8.4% SYRINGE ONE (15:53)
[2017-09-27] MEDS: Sodium Chloride 0.45% 1,000 ML IV SCH (16:14)
--- NOTE | 2017-09-27 18:29 | PDOC.PN ---
- Subjective Encounter Start Date: 09/27/17 Encounter Start Time: 18:28 Subjective: patient seen and examined still on life support - Objective Vital Signs & Weight: Vital Signs (12 hours) Temp Pulse Resp BP Pulse Ox 09/27/17 18:00 21 H 09/27/17 17:00 75 157/57 H 09/27/17 16:00 99.4 F 25 H 09/27/17 14:32 75 157/44 H 09/27/17 14:00 25 H 09/27/17 12:00 98.7 F 26 H 09/27/17 10:47 78 167/53 H 09/27/17 10:00 24 H 09/27/17 08:00 98.8 F 78 24 H 94 L 09/27/17 06:59 76 104/44 L Weight Admit Weight 154 lb Weight 172 lb 2.896 oz Most Recent Monitor Data Heart Rate from ECG 73 NIBP 153/44 NIBP BP-Mean 102 Respiration from ECG 28 SpO2 93 I&O: 09/26/17 09/27/17 09/28/17 06:59 06:59 06:59 Intake Total 2393 2276 1330 Output Total 300 130 55 Balance 2093 2146 1275 Result Diagrams: 09/27/17 05:50 09/27/17 05:50 Additional Labs: Accuchecks 09/27/17 09/26/17 09/26/17 01:11 21:10 16:18 POC Glucose 322 H 307 H 292 H 09/26/17 09/26/17 09/26/17 12:32 04:25 00:20 POC Glucose 343 H 181 H 175 H 09/25/17 20:17 POC Glucose 157 H Phys Exam - Physical Examination intubated Neck: no nodes, no JVD vented sounds Cardiovascular: RRR, no significant murmur Gastrointestinal: soft Dx/Plan (1) PHIL (acute kidney injury) Code(s): N17.9 - ACUTE KIDNEY FAILURE, UNSPECIFIED Status: Acute (2) Uremia Code(s): N19 - UNSPECIFIED KIDNEY FAILURE Status: Acute (3) Acute blood loss anemia Code(s): D62 - ACUTE POSTHEMORRHAGIC ANEMIA Status: Acute (4) Hematemesis Code(s): K92.0 - HEMATEMESIS Status: Acute (5) Leukocytosis Code(s): D72.829 - ELEVATED WHITE BLOOD CELL COUNT, UNSPECIFIED Status: Acute (6) Respiratory failure Code(s): J96.90 - RESPIRATORY FAILURE, UNSP, UNSP W HYPOXIA OR HYPERCAPNIA Status: Acute (7) Sepsis associated hypotension Code(s): A41.9 - SEPSIS, UNSPECIFIED ORGANISM Status: Acute - Plan valdovinos catheter, respiratory therapy No family memeber could be reached to make a decision -: [facility] intouch with [facility] [[email or web address]]--if no family memeber to make a decision -: 2 doctor could make the decision towards terminal extubation -: Consider this plan in the next 24hrs * .
[2017-09-27] MEDS ORDERED: Cefepime 0.5 GM, Admixture Fee 1 EACH in Sterile Water 5 ML SLOW IVP SCH (21:00)
[2017-09-27] MEDS: Atorvastatin Calcium 20 MG TAB PO SCH (21:01)
[2017-09-28] MEDS: Insulin Regular 300 UNITS/3 ML VIAL SC PRN ×4 (00:52→11:05)
[2017-09-28 05:32] LABS: Hematocrit 27.2 % (42.0-52.0); Mean Platelet Volume 11.5 fL (7.4-10.4); Red Blood Cell (RBC) Count 3.03 mill/uL (4.70-6.10); White Blood Cell (WBC) Count 61.7 thou/uL (4.8-10.8)
[2017-09-28 05:33] LABS: Anion Gap 26 mmol/L (10-20); Calc. Creatinine Clearance 7 mL/min (70-130); Calcium 8.2 mg/dL (7.8-10.44); Carbon Dioxide 15 mmol/L (23-31); Chloride 96 mmol/L (98-107); Estimated GFR-MDRD 5
[2017-09-28 05:44] LABS: BUN (Urea Nitrogen) 219 mg/dL (8.4-25.7)
[2017-09-28 06:08] LABS: Anisocytosis MODERATE=16-30 cells (100X) (0-5/hpf); Band 12 % (5-11); Metamyelocyte 11 % (0-0); Myelocyte 2 % (0-0); Neutrophil 38 % (42-75); Nucleated RBC 6 % (0); Polychromasia SLIGHT = 2-3 cells (100X) (0-2/hpf); Reactive Lymphocytes 3 % (0-10); Tear Drops MODERATE= 6-15 cells (100X) (0-1/hpf)
[2017-09-28] MEDS: Amiodarone HCl 450 MG in Dextrose 5% in Water 250 ML IVPB SCH ×2 (06:44)
[2017-09-28 07:26] LABS: Oxyhemoglobin 81.5 % (94.0-97.0); Sodium 128 mmol/L (135-148)
[2017-09-28 07:29] LABS: Mechanical Tidal Volume 500 ml; Mode SIVM.PSV; Modified Allen's Test POSITIVE; Pressure Support 10 cmH2O; Vent YES
--- NOTE | 2017-09-28 08:51 | PRG ---
DATE OF SERVICE: 09/28/2017. SUBJECTIVE: Mr. Salas is a 72-year-old white male who is seen by the Renal Service for his acute kid misbah injury from presumed ischemic acute tubular necrosis. Renal function continues to worsen over ti me. No acute event noted last night. PHYSICAL EXAMINATION: VITAL SIGNS: Blood pressure 148/39, heart rate 69, respiratory rate 24, pulse ox 91%. GENERAL: Unresponsive, intubated on ventilator support. SKIN: Adequate turgor. HEENT: Slightly pale conjunctivae, anicteric sclerae. NECK: No neck mass, no carotid bruits, no JVD. CHEST: No deformities. LUNGS: Decreased breath sounds. HEART: Normal sinus rhythm. No murmur, no gallops, no rubs. ABDOMEN: Globular, soft, nontender, no masses. EXTREMITIES: No edema. MEDICATIONS: 09/28/2017 - Reviewed. LABORATORY: 09/28/2017 - White count 61.7, hemoglobin 8.6. Sodium 130, potassium 6.7, chloride 96, carbon dioxide 15, BUN 219, creatinine 10.87, glucose 242, calcium 8.2. ASSESSMENT AND PLAN: 1. Acute kidney injury - secondary to ischemic acute tubular necrosis. The patient's renal function has been worsening. Hemodialysis is not initiated due to the fact that this patient has no meaningf ul recovery. 2. Please note he has several ongoing active comorbid problems. He has underlying leukemia, sepsis and acute respiratory failure. Consider placing this patient on hospice.
[2017-09-28] MEDS: Pantoprazole 40 MG VIAL IVP SCH (09:08)
[2017-09-28] MEDS: Insulin Detemir 100 UNITS/ML 15 UNITS in Pre-Filled Syringe 1 EACH SC SCH (09:09)
[2017-09-28] MEDS: Sodium Chloride 0.45% 1,000 ML IV SCH (09:09)
--- NOTE | 2017-09-28 11:01 | PRG ---
DATE OF SERVICE: 09/28/2017 Kirstie juarez was called on this patient approximately 10:30 a.m. I was nearby and responded. The patie nt's initial rhythm was a junctional bradycardic rhythm. When I arrived, CPR was being administered with chest compressions and he was receiving bag ET tube ventilation. He received 1 epinephrine. He converted into a more regular junctional rhythm with conductive pulse. At one point, he developed V -tach. He was shocked with 200 joules. He reverted to a sinus rhythm. He then developed a widened QRS. It is noted that his potassium is very elevated this morning. He was given an amp of calcium, 2 amps of bicarbonate and responded with a narrow QRS, sinus tachycardia. I discussed the situation with Dr. Denise. Apparently, the patient's case is terminal. He has no family available to make decis ions. We have decided to institute to attending DNR on the chart.
[2017-09-28 11:14] VITALS: BP 156/40
[2017-09-28 11:17] VITALS: TEMP 98.7
--- NOTE | 2017-09-28 14:08 | ADD-PRG ---
ADDENDUM This is an addendum note to today's previous earlier note. The patient had a cardiopulmonary arrest. CPR was briefly initiated. Please review the note. He no w has a positive blood pressure. We discussed the situation. The patient has multiorgan failure. His outlook is grave. No chance of meaningful recovery. He has been made a DNR. Two physicians attested to his ongoing multiorgan ankit lure and terminal process. This is Dr. Denise along with Dr. Hong making the patient a DNR. Prognosis is grave. No further CP R.
[2017-09-28] MEDS ORDERED: EPINEPHrine 1 MG/10 ML Abboject SYRINGE ONE (14:30)
[2017-09-28] MEDS ORDERED: Calcium Chloride 1 GM/10 ML Abboject SYRINGE ONE (14:30)
[2017-09-28] MEDS ORDERED: Sodium Bicarb 50 MEQ/50 ML Abboject 8.4% SYRINGE ONE (14:30)
--- NOTE | 2017-09-28 14:32 | DS ---
DATE OF : 09/28/2017 TIME OF : 12:23 SUMMARY: Faraz Salas at 12:23, he had a cardiopulmonary arrest. Pupils fixed and dilated. Nurse at the bedside prounounced him. His body was released to the home as per the jail system. FINAL DIAGNOSES: 1. Multiorgan failure. 2. Renal failure. 3. Anoxic injury. 4. Respiratory failure. 5. Supraventricular tachycardia. 6. Septic shock. 7. Pneumonia. 8 probable acute leukemia MTDD
--- NOTE | 2017-09-28 14:37 | PRG ---
DATE OF SERVICE: 09/28/2017 SUBJECTIVE: This patient at the time of my examination is still intubated, sedated and minimal ET tu be secretions. PHYSICAL EXAMINATION: VITAL SIGNS: Blood pressure is 148/39, heart rate is 69, respirations 24, pulse is 91. GENERAL: Unresponsive, intubated on vent support. SKIN: Adequate turgor. HEENT: Pale conjunctivae. NECK: No neck masses. CHEST: No deformities. LUNGS: Decreased sounds at the bases. HEART: S1, S2 normal. No murmurs or gallops. GASTROINTESTINAL: Soft, bowel sounds are sluggish. EXTREMITIES: No edema. LABORATORY DATA: WBC count 61, hemoglobin is 8.6. Sodium is 130, chloride is 96, BUN is 219, creati nine 7.87. ASSESSMENT AND PLAN: 1. Acute kidney injury secondary to ischemic tubular necrosis. We will follow renal plan. 2. Elevated white count, possibly secondary to leukemia. We will monitor that. 3. Sepsis with multiorgan failure with acute respiratory failure. We will follow regional liaison plan a nd continue current treatment. 4. Diabetic ketoacidosis has been resolved. 5. Respiratory failure secondary to pneumonia, on continued ventilator support. Follow by intensivi st plan. 6. Diabetes, stable. 7. Hypertension, stable. 8. Hyperlipidemia, stable. 9. Coronary artery disease, stable. 10. Hypothyroidism, stable. 11. Uremia. Follow Renal plan. Echocardiogram was 30%. 12. Anemia of acute blood loss secondary to her gastrointestinal bleed. We will follow GI plan. I will work with the consultants and further caring for the patient.
--- NOTE | 2017-09-28 14:49 | DS ---
DATE OF ADMISSION: 09/21/2017 DATE OF : 09/28/2017 at 12:23 p.m. CAUSE OF : Sepsis, secondary to pneumonia with multiorgan failure; acute respiratory failure, s econdary to pneumonia; acute kidney injury, secondary to acute tubular necrosis, secondary to ischemi c damage giving rise to uremia. DISCHARGE DIAGNOSES: Include respiratory failure, secondary to pneumonia; diabetic ketoacidosis, res olved; diabetes; hypertension; hyperlipidemia; coronary artery disease; hypothyroidism; acute kidney injury, secondary to ischemic acute tubular necrosis; uremia; elevated white count, possibly secondar y to leukemia; acute blood loss anemia, secondary to gastrointestinal blood loss; ejection fraction o f 30%. CONSULTANTS ON THE CASE: Renal, GI, Pulmonary, Cardiology. BRIEF HOSPITAL COURSE: This is a 72-year-old pleasant gentleman came into the hospital with coughing up of blood and vomiting blood. He was also in respiratory distress and was intubated when he came in. Please refer to the admitting physician's H and P for further details. He was initially in DKA, and he put on DKA protocol, and that resolved with the treatment. He was also found to be anemic an d was transfused 2 units of blood. Cardiology, Pulmonary, GI, and Renal were consulted, because of m ultiorgan failure disorder. Pulmonary helped us manage the vent and monitor the patient's course in the ICU. Patient did not do well this hospital stay and on 09/22/2017, he was scoped and GI put him on IV Protonix. Echocardiogram was done in this hospital stay and was 30% ejection fraction. Today, on the at 10:30 a.m., patient had a code blue. Initial rhythm was junctional bradycardic rhyth m. When I arrived, CPR was being administered with chest compressions and he was given bag, ET tube, ventilation. He received 1 epinephrine. He converted into a more junctional rhythm with a conducti ve pulse. He developed V-tach, for which he was shocked with 200 joules. He reverted to sinus rhyth m. He then developed a widened QRS. Potassium was very elevated this morning. He got 1 amp of calc ium and 2 amps of bicarbonate and responded with narrow QRS sinus tachycardia. The patient was made DNR by Dr. Cristobal after discussing with Dr. Denise. He at 12:23 p.m. Further arrangements have been made by the hospital staff. Total time for this discharge took 35 minutes.
--- NOTE | 2017-09-29 09:11 | PRG ---
DATE OF SERVICE: 09/28/2017 SUBJECTIVE: Faraz Salas remains encephalopathic on the vent, unresponsive. No sedation. OBJECTIVE: VITAL SIGNS: Pulse is 68, blood pressure 140/83, sats are 91 on 70%, PEEP of 10, respiration 26. HEENT: Pupils are 4 mm, sluggish. His I's and O's are 2276 out and 130 in. CHEST: Extensive rhonchi. CARDIAC: Normal S1, S2. No gallops. ABDOMEN: Soft. LABORATORY DATA: White count 61,000, H&H is 8 and 27, platelet count is 83. PO2 60, PCO2 45, pH 7.1 3, rate of 20, 70%, PEEP of 10. Potassium 6.7. BUN is 219, creatinine 10. IMPRESSION: 1. Multiorgan failure. 2. Anoxic injury. 3. Renal failure, elevated potassium. Please note, we are not going to be treating this. 4. Marked leukocytosis, possibly acute leukemia. 5. Staph methicillin-resistant Staphylococcus aureus in sputum. PLAN: Unfortunately, once again we do not have any family members in the talk due to discontinue hi s present treatment. In excess, I am stopping his antibiotics, his Cardizem. Comfort care. To gianni bravo people at the bedside who I told them that his prognosis is grave. One-half hour critical care time.
== END 2017-09-28 12:23 | disposition expired | DRG 870 ==
LOC: EEVIPCON 00:02 → ERS 00:02 → CCU 00:59
PROVIDERS: ADMIT Internal Medicine; ATTEND Internal Medicine
PROC: 5A1955Z Respiratory Ventilation, Greater than 96 Consecutive Hours (ICD-10-PCS; principal; 2017-09-21)
PROC: 02HV33Z Insertion of Infusion Device into Superior Vena Cava, Percutaneous Approach (ICD-10-PCS; 2017-09-21)
PROC: 30233K1 Transfusion of Nonautologous Frozen Plasma into Peripheral Vein, Percutaneous Approach (ICD-10-PCS; 2017-09-21)
PROC: 30233N1 Transfusion of Nonautologous Red Blood Cells into Peripheral Vein, Percutaneous Approach (ICD-10-PCS; 2017-09-21)
PROC: 0DJ08ZZ Inspection of Upper Intestinal Tract, Via Natural or Artificial Opening Endoscopic (ICD-10-PCS; 2017-09-22)
PROC: 5A12012 Performance of Cardiac Output, Single, Manual (ICD-10-PCS; 2017-09-28)
PROC: 5A2204Z Restoration of Cardiac Rhythm, Single (ICD-10-PCS; 2017-09-28)
DX: A41.02 Sepsis due to Methicillin resistant Staphylococcus aureus (principal); J96.00 Acute respiratory failure, unspecified whether with hypoxia or hypercapnia; N17.0 Acute kidney failure with tubular necrosis; I21.4 Non-ST elevation (NSTEMI) myocardial infarction; R57.1 Hypovolemic shock; J90 Pleural effusion, not elsewhere classified; G93.1 Anoxic brain damage, not elsewhere classified; J18.9 Pneumonia, unspecified organism; I47.2 Ventricular tachycardia; R65.21 Severe sepsis with septic shock; E11.10 Type 2 diabetes mellitus with ketoacidosis without coma; K92.0 Hematemesis; C95.00 Acute leukemia of unspecified cell type not having achieved remission; R04.2 Hemoptysis; N28.0 Ischemia and infarction of kidney; D62 Acute posthemorrhagic anemia; I47.1 Supraventricular tachycardia; I46.9 Cardiac arrest, cause unspecified; I10 Essential (primary) hypertension; E78.5 Hyperlipidemia, unspecified; E03.9 Hypothyroidism, unspecified; I25.10 Atherosclerotic heart disease of native coronary artery without angina pectoris; Z66 Do not resuscitate; E87.5 Hyperkalemia; Z79.4 Long term (current) use of insulin; K29.70 Gastritis, unspecified, without bleeding; I48.91 Unspecified atrial fibrillation
CPT/HCPCS: 36415; 36416; 36430; 36556; 71010; 76770; 80048; 80053; 80202; 81001; 81003; 81015; 82010; 82330; 82533; 82553; 82803; 82805; 83605; 83735; 83880; 84100; 84443; 84484; 85025; 85060; 85610; 85730; 86850; 86900; 86901; 87040; 87070; 87077; 87086; 87186; 87205; 88184; 93005; 93010; 93306; 94002; 94003; 94640; 96365; 96366; 99292; A4216; C9113; J0171; J0282; J0692; J1160; J1815; J1940; J1956; J2020; J2060; J2270; J2543; J2704; J3010; J3370; J3430; J7050; J7070; J7620; P9016; P9047; P9059